=== PATIENT | male | born 1960 | race Caucasian/White ===

== ENCOUNTER → 2018-01-10 10:00 | Outpatient (CLI) | payer BC, OTHER, SELFPAY | PROVIDERS: PCP Family Medicine; Visit Provider Student in an Organized Health Care Education/Training Program | DX: Z47.89 Encounter for other orthopedic aftercare (principal); G56.02 Carpal tunnel syndrome, left upper limb ==

== ENCOUNTER 2018-01-13 08:28 | Emergency (ER) | payer BC, OTHER, SELFPAY ==
[2018-01-13 08:35] VITALS: BP 153/78; PULSE 55; RESP 16; TEMP 36.4; O2SAT 98
--- NOTE | 2018-01-13 09:53 | ED.GENADUL_ITS ---
Disposition Clinical Impression: Penile lesion, Blister Disposition: HOME Condition: Fair Additional Instructions: Keep wound clean and dry. You may apply bacitracin to help prevent this from sticking to clothing. Monitor area for signs of infection including redness, pain, discharge, fever/chills. If these arise or you develop other new/ worsening symptoms please seek care urgently once again. Refrain from sexual activity until this is completely resolved. Please follow-up with primary care this week to ensure that this is healing well. Referrals: Oscar Evans DO [Primary Care Provider] - Medical Decision Making - Medical Decision Making Patient presents today with chief complaint of penile lesion. Lesion presented itself this morning with patient had an erection. 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 The area is most consistent with a ruptured blister. Is irregularly shaped and appears very shallow like in the outermost layer of skin had been removed. Does not appear consistent with a chancre. Patient is not at risk for syphilis as he has been tested historically has been in a monogamous relationship. It is not consistent with a herpetic lesion. No surrounding lesions. No penile discharge. No change in urinary or bowel habits. I do not see evidence of bacterial infection. Patient I did discuss the signs symptoms of infection bacterial infection when to seek care urgently once again. Advised that he keep this clean and try to keep this moistened with bacitracin as I am concerned that it may stick to his underwear and cause further irritation. Advise follow-up with primary care this week for reevaluation. All of his questions and concerns were addressed and he is in agreement with this plan. History of Present Illness - General Chief complaint: RashLesion Stated complaint: RASH Time Seen by Provider: 01/13/18 09:40 Source: patient, RN notes reviewed Mode of arrival: ambulatory Limitations: no limitations - History of Present Illness Initial comments: Patient is a 57-year-old male presenting today with chief complaint of penile lesion. 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 States that it was quite irritating to him and he did have to adjust on multiple occasions. States that he did not think much of this and did not have any pain or subsequent injury. However, when he awoke this morning with an erection he then noted a lesion to the dorsal aspect of his penis. States it is nonpainful. He has not noted any discharge. Denies any discharge from the penis. No new sexual partners. Patient is in a monogamous relationship. Reports that he has been tested for STDs historically and has been found to be negative. Denies any fevers or chills. Continues to deny any pain at the site of the lesion. Denies any change in bowel or bladder habits. - Related Data Hydrochlorothiazide 12.5 mg PO DAILY 05/19/14 Losartan [Cozaar] 50 mg PO DAILY 05/19/14 Pravastatin [Pravachol] 40 mg PO .QHS 05/19/14 Cholecalciferol (Vitamin D3) [Vitamin D3] 2,000 unit PO DAILY 09/07/17 Echinacea 380 mg PO DAILY #2 09/07/17 Multivitamin [Multi-Vitamin Daily] 1 each PO DAILY 09/07/17 [place]-3/Dha/Epa/Fish Oil [Fish Oil 1,200 mg Softgel] 1 each PO DAILY 09/07/17 Tadalafil [Cialis] 20 mg PO DAILY 7 Days #7 tab-cap 09/07/17 Allergies Allergy/AdvReac Type Severity Reaction Status Date / Time poison lashawn extract Allergy Unverified 01/13/18 08:37 Review of Systems Constitutional: no symptoms reported. denies: chills, fever Respiratory: no symptoms reported Gastrointestinal: denies: abdominal pain, nausea, vomiting, diarrhea, constipation Genitourinary: as per HPI. denies: urgency, dysuria, frequency, hematuria, discharge, testicular pain, testicular mass Musculoskeletal: denies: back pain Skin: as per HPI Past Medical History - Past Medical History Medical history: hyperlipidemia, hypertension Surgical history: non-contributory - Social History Living Situation: lives with family General Exam - General Limitations: no limitations General appearance: alert, in no apparent distress - Eye Eye exam: Present: normal apperance - Respiratory Respiratory exam: Absent: respiratory distress - Rectal Rectal exam: Present: deferred - exam: Absent: normal inspection (Exam the patient's penis reveals a nontender very shallow lesion consistent with a ruptured blister. It is irregularly shaped. It does not appear to be eroded such as with a chancre. No discharge. There is pink. Appears that the superficial most layer of skin has been removed again, such as a popped blister. No surrounding erythema. No penile discharge. No penile pain on palpation.), testicular tenderness, urethral discharge, scrotal swelling - Neurological Exam Neurological exam: Present: alert, normal gait - Psychiatric Psychiatric exam: Present: normal affect, normal mood - Skin Skin exam: Absent: normal color (As above), vesicles Course Vital Signs - 24 hr 01/13/18 08:35 Temperature 36.4 C L Pulse 55 L Respiratory 16 Rate Blood Pressure 153/78 Pulse Oximetry 98
== END 2018-01-13 10:06 | disposition home or self-care (01) ==
PROVIDERS: Emergency Provider Physician Assistant; PCP Family Medicine
DX: S30.822A Blister (nonthermal) of penis, initial encounter (principal); X58.XXXA Exposure to other specified factors, initial encounter; I10 Essential (primary) hypertension
CPT/HCPCS: 99282

== ENCOUNTER → 2018-01-17 14:19 | Outpatient (CLI) | payer BC, OTHER, SELFPAY ==
[2018-01-18 11:31] LABS: Syphilis Serology (RPR) Negative (Negative)
== END ==
PROVIDERS: PCP Family Medicine; Visit Provider Family Medicine
DX: N48.9 Disorder of penis, unspecified (principal)
CPT/HCPCS: 36415; 86592

== ENCOUNTER 2020-09-23 06:34 | Outpatient (CLI) | payer BC, OTHER, SELFPAY ==
--- NOTE | 2020-09-23 09:00 | DI.RAD_ITS ---
EXAM: XR SHOULDER RT COMPLETE 2+V CLINICAL HISTORY: R shoulder pain, eval for arthritis, ac joint arthritis, M19.019. TECHNIQUE: 2D digital imaging was performed. COMPARISON: No exams were available for comparison FINDINGS: There is no evidence of fracture nor dislocation or abnormal soft tissue calcifications. Mild degene rative changes are noted in the glenohumeral joint. No obvious findings in the AC joint. No osseous lesions. Bone density normal. IMPRESSION: DATA REPOSITORY: RADIATION DOSE DELIVERED:
== END 2020-09-23 06:54 ==
PROVIDERS: PCP Family Medicine; Visit Provider Family Medicine
DX: M25.511 Pain in right shoulder (principal); M19.011 Primary osteoarthritis, right shoulder
CPT/HCPCS: 73030

== ENCOUNTER 2020-09-24 08:59 | Outpatient (CLI) | payer BC, OTHER, SELFPAY ==
--- NOTE | 2020-09-24 09:45 | DI.RAD_ITS ---
EXAM: XR SHOULDER LT COMPLETE 2+V CLINICAL HISTORY: Generalized L shoulder pain M25.512. TECHNIQUE: 2D digital imaging was performed. COMPARISON: CR XR SHOULDER RT COMPLETE 2+V from 09/23/2020 FINDINGS: BONES: No acute fracture is present. No bony destructive lesion is seen. JOINTS: No dislocation present. There is no significant AC joint spurring. There is minimal spurrin g at the tip of the acromion. There is mild spurring at rim of the glenoid. The glenohumeral joint space is well maintained. SOFT TISSUE: There is heavy calcification seen above the humeral head, consistent with supraspinatus calcific tendinosis. IMPRESSION: Mild degenerative changes and calcific tendinosis. DATA REPOSITORY: RADIATION DOSE DELIVERED:
--- NOTE | 2020-09-24 09:45 | DI.RAD_ITS ---
EXAM: XR CERVICAL SPINE COMP 4-5V CLINICAL HISTORY: Persistent neck stiffness and pain M43.6 TORTICOLLIS. TECHNIQUE: 2D digital imaging was performed. COMPARISON: CR CERVICAL SP. LIMITED (TRAUMA) from 05/19/2014 FINDINGS: Exam is limited by motion. BONES: No fracture or gross evidence of destructive lesion. Vertebral bodies plate osteophytes projec ting mainly anteriorly. Facet joint osteophytes are also seen. There is neural foraminal encroachme nt on the left at C2-3 and C3-4. There is mild neural foraminal encroachment at C6-7 on the right. DISKS: Mild disc space narrowing at C5-6 and C6-7. ALIGNMENT: Cervical spinal alignment is within normal limits. The odontoid and atlantoaxial articulat ions are normal. SOFT TISSUE: Normal. The lung apices are clear. IMPRESSION: Neural foraminal narrowing on the left at C2-3 and C3-4 secondary to facet degenerative changes. Mil d right neural foraminal narrowing at C6-7 secondary to uncovertebral osteophytes. DATA REPOSITORY: RADIATION DOSE DELIVERED:
== END 2020-09-24 09:19 ==
PROVIDERS: PCP Family Medicine; Visit Provider Family Medicine
DX: M25.512 Pain in left shoulder (principal); M19.012 Primary osteoarthritis, left shoulder; M75.32 Calcific tendinitis of left shoulder; M54.2 Cervicalgia; M43.6 Torticollis; M50.322 Other cervical disc degeneration at C5-C6 level; M50.323 Other cervical disc degeneration at C6-C7 level
CPT/HCPCS: 72050; 73030

== ENCOUNTER 2020-12-08 01:56 | Outpatient (CLI) | payer BC, OTHER, SELFPAY ==
--- NOTE | 2020-12-08 09:00 | DI.MRI_ITS ---
Exam(s) MR UPPER JOINT RT WO EXAM: MR UPPER JOINT RT WO CLINICAL HISTORY: rt rotator cuff tendinitis, shoulder pain, m75.81. TECHNIQUE: Multiplanar multisequence MRI was performed. COMPARISON: No exams were available for comparison FINDINGS: BONES: There is no fracture or contusion pattern. JOINTS: Mild degenerative changes of the acromioclavicular joint are noted. The glenohumeral joint i s normal. TENDONS: Supraspinatus: Unremarkable. Infraspinatus: There is hyperintense signal seen in the infraspinatus tendon consistent with partial tear versus tendinosis. Subscapularis: Unremarkable. [place]: Unremarkable. Biceps and [place]: There is hyperintense signal and thickening of the biceps tendon suspicious for pa rtial tear or tendinosis. MUSCLES: Unremarkable. GLENOID LABRUM: Unremarkable on this noncontrast examination. SOFT TISSUES: Unremarkable. LIGAMENTS: Unremarkable. OTHER: There is a small amount of fluid in the subacromial subdeltoid bursa. IMPRESSION: 1. Tendinosis or partial tear of the infraspinatus and biceps tendon. 2. Mild degenerative changes of the acromioclavicular joint. 3. Small amount of fluid in the subacromial subdeltoid bursa. DATA REPOSITORY:
== END 2020-12-08 02:16 ==
PROVIDERS: PCP Family Medicine; Visit Provider Student in an Organized Health Care Education/Training Program
DX: M19.011 Primary osteoarthritis, right shoulder (principal); M75.101 Unspecified rotator cuff tear or rupture of right shoulder, not specified as traumatic; M75.81 Other shoulder lesions, right shoulder; M25.411 Effusion, right shoulder
CPT/HCPCS: 73221

== ENCOUNTER 2021-02-21 02:36 | Outpatient (CLI) | payer BC, OTHER, SELFPAY ==
[2021-02-21 11:02] LABS: Source Nasal/Nares
[2021-02-21 14:17] LABS: COVID-19 PCR Negative (Negative)
== END 2021-02-21 02:37 | disposition home or self-care (01) ==
LOC: LBO 02:36
PROVIDERS: PCP Family Medicine; Visit Provider Student in an Organized Health Care Education/Training Program
DX: Z20.822 Contact with and (suspected) exposure to COVID-19 (principal); Z01.818 Encounter for other preprocedural examination
CPT/HCPCS: 87635

== ENCOUNTER 2021-02-22 07:29 | Day surgery (SDC) | payer BC, OTHER, SELFPAY ==
[2021-02-22] VITALS (9 sets, daily range): BP systolic 126–155; BP diastolic 37–70; PULSE 51–60; RESP 16–22; TEMP 36.2–36.7; O2SAT 97–99; BMI 37.7
--- NOTE | 2021-02-22 07:18 | W.PM.DSUDISC ---
Documented by User: Natalie Orellana 02/22/21 07:38 Discharge Plan Disposition Patient Disposition: HOME Condition: Good Discharge Details Reason For Visit: Right rotator cuff tendonitis; biceps tendonitis Attending Provider: Varun Acosta Primary Care Provider: Oscar Evans Home Meds and New Rx's Prescriptions: New acetaminophen 500 mg tablet 1,000 mg PO Q8H PRN Qty: 90 RF: 0 ibuprofen 600 mg tablet 600 mg PO TID PRN (Reason: pain) Qty: 60 RF: 0 oxycodone 5 mg tablet 5 mg PO Q4H PRN (Reason: severe post-operative pain) Qty: 12 RF: 0 Continued aspirin [Adult Aspirin Regimen] 81 mg tablet,delayed release (DR/EC) 81 mg PO DAILY RF: 0 potassium chloride 20 mEq packet 20 meq PO DAILY RF: 0 losartan 100 mg tablet 100 mg PO DAILY RF: 0 multivitamin [Daily Multi-Vitamin] 1 EACH tablet 1 ea PO DAILY RF: 0 omega 0-tdn-mqs-fish oil [Fish Oil] 1 EACH capsule,delayed release(DR/EC) 1 ea PO DAILY RF: 0 atorvastatin 40 mg tablet 40 mg PO DAILY RF: 0 hydrochlorothiazide 25 mg tablet 12.5 mg PO BID RF: 0 cholecalciferol (vitamin D3) [Vitamin D3] 50 mcg (2,000 unit) capsule 2,000 unit PO DAILY RF: 0 Discharge Instructions Stand Alone Forms: Dave Pitts w/BT Referrals: Varun Acosta MD [ [facility] STAFF PHYSICIAN] - Equipment/Supplies: Sling Activity:: Sling for comfort Remove Dressings/Wound Care:: Do Not Remove Shower/Bathe:: Cover Diet:: As Tolerated Discharge Orders Discharge Orders: Discharge Order (Routine); Ordered 02/22/21 Ordered By: Natalie Orellana DS: Diagnosis Discharge Diagnosis (1) Partial tear of right rotator cuff: Status: Acute (2) Tendinopathy of right biceps tendon: Status: Acute (3) Right rotator cuff tendinitis: Status: Acute Documented by User: Varun Acosta MD 02/22/21 12:36 Discharge Plan Disposition Patient Disposition: HOME Condition: Good Discharge Details Reason For Visit: Right rotator cuff tendonitis; biceps tendonitis Attending Provider: Varun Acosta Primary Care Provider: Oscar Evans Home Meds and New Rx's Prescriptions: New acetaminophen 500 mg tablet 1,000 mg PO Q8H PRN Qty: 90 RF: 0 ibuprofen 600 mg tablet 600 mg PO TID PRN (Reason: pain) Qty: 60 RF: 0 oxycodone 5 mg tablet 5 mg PO Q4H PRN (Reason: severe post-operative pain) Qty: 12 RF: 0 Continued aspirin [Adult Aspirin Regimen] 81 mg tablet,delayed release (DR/EC) 81 mg PO DAILY RF: 0 potassium chloride 20 mEq packet 20 meq PO DAILY RF: 0 losartan 100 mg tablet 100 mg PO DAILY RF: 0 multivitamin [Daily Multi-Vitamin] 1 EACH tablet 1 ea PO DAILY RF: 0 omega 4-meq-wvl-fish oil [Fish Oil] 1 EACH capsule,delayed release(DR/EC) 1 ea PO DAILY RF: 0 atorvastatin 40 mg tablet 40 mg PO DAILY RF: 0 hydrochlorothiazide 25 mg tablet 12.5 mg PO BID RF: 0 cholecalciferol (vitamin D3) [Vitamin D3] 50 mcg (2,000 unit) capsule 2,000 unit PO DAILY RF: 0 Discharge Instructions Stand Alone Forms: Dave Pitts w/BT Referrals: Varun Acosta MD [ [facility] STAFF PHYSICIAN] - Equipment/Supplies: Sling Activity:: Sling for comfort Remove Dressings/Wound Care:: Do Not Remove Shower/Bathe:: Cover Diet:: As Tolerated Discharge Orders Discharge Orders: Discharge Order (Routine); Ordered 02/22/21 Ordered By: Natalie Orellana
[2021-02-22] MEDS: Lactated Ringers 1,000 ML 80 ML IV (08:02)
--- NOTE | 2021-02-22 08:50 | W.ANESPRE ---
General Info Date of Service Date Performed: 02/22/21 Height: 5 ft 9 in Weight: 115.9 kg Body Mass Index (BMI): 37.7 Surgical Procedure: Operation Date: 02/22/21 09:40 Proposed Procedures Side Surgeon p shoulder arthroscopy with debridement, possible rotator cuff repair Right Varun Acosta MD s Shoulder Bicep Tenodesis Right Varun Acosta MD Meds Allergies and Home Medications Allergies Allergy/AdvReac Type Severity Reaction Status Date / Time poison lashawn extract Allergy Verified 02/22/21 07:32 Home Medication Medication Instructions Recorded multivitamin [Daily Multi-Vitamin] 1 ea PO DAILY 09/07/17 omega 4-xzy-fim-fish oil [Fish Oil] 1 ea PO DAILY 09/07/17 atorvastatin 40 mg tablet 40 mg PO DAILY 03/25/18 aspirin 81 mg tablet,delayed 81 mg PO DAILY 04/10/18 release cholecalciferol (vitamin D3) 50 2,000 unit PO DAILY 09/20/20 mcg (2,000 unit) capsule hydrochlorothiazide 25 mg tablet 12.5 mg PO BID tab 09/20/20 losartan 100 mg tablet 100 mg PO DAILY tab-cap 09/20/20 potassium chloride 20 mEq oral 20 meq PO DAILY 09/20/20 packet acetaminophen 1,000 mg PO Q8H PRN #90 tab 02/22/21 ibuprofen 600 mg PO TID PRN #60 tab 02/22/21 oxycodone 5 mg PO Q4H PRN #12 tab 02/22/21 Current Visit Medications: Current Medications Generic Name Dose Route Start Last Admin Trade Name Freq PRN Reason Stop Dose Admin Acetaminophen 650 mg 02/22/21 07:17 Acetaminophen 325 Mg Tab PO Q4H PRN PRN Hydrocodone Bitart/Acetaminophen 0 tab 02/22/21 07:17 Hydrocodone 5/Acetaminophen 325 Tab PO Q3H PRN PRN Pain Ephedrine Sulfate 0 mg 02/22/21 08:29 Ephedrine 50 Mg/Ml Vial IVP DIRECTED PRN Fentanyl 0 mcg 02/22/21 08:29 Fentanyl 100 Mcg/2 Ml Vial IVP DIRECTED PRN Hydromorphone HCl 0 mg 02/22/21 08:29 Hydromorphone 2 Mg/Ml Vial IVP DIRECTED PRN Ringer's Solution 1,000 mls @ 80 mls/hr 02/22/21 06:00 02/22/21 08:02 IV 03/23/21 23:59 80 mls/hr INFUSION DARNELL Administration Cefazolin Sodium 3,000 mg/ 100 mls @ 200 mls/hr 02/22/21 06:00 Sodium Chloride IVPB 02/22/21 16:00 PREOP DARNELL Promethazine HCl 6.25 mg/ 50.25 mls @ 200 mls/hr 02/22/21 08:29 Sodium Chloride IVPB DIRECTED PRN Nausea IV Miscellaneous Supplies 1 each 02/22/21 06:00 Iv Access IV 03/23/21 23:59 DIRECTED DARNELL Naloxone HCl 0 mg 02/22/21 08:29 Naloxone 0.4 Mg/Ml Vial IVP PRN PRN Sodium Chloride 0 ml 02/22/21 06:00 Normal Saline Flush 10 Ml Syr IV 03/23/21 23:59 PRN PRN Sodium Chloride 0 ml 02/22/21 06:00 Normal Saline 10 Ml Vial IJ 03/23/21 23:59 DIRECTED PRN Sterile Water 0 ml 02/22/21 06:00 Water,Injection,Sterile 10 Ml Vial IJ 03/23/21 23:59 DIRECTED PRN PFSH Active Problems Active Problems: Problem Status Onset Code Partial tear of right rotator cuff M75.111 Tendinopathy of right biceps tendon M67.921 Right rotator cuff tendinitis M75.81 Left carpal tunnel syndrome G56.02 History of carpal tunnel surgery of right wrist Z98.890 History of carpal tunnel surgery of left wrist Z98.890 Hematospermia 08/29/17 R36.1 Thoracic spine pain 08/29/17 M54.6 Sleep apnea 08/29/17 G47.30 Pain in joint involving ankle and foot 08/29/17 M25.579 Hyperlipidemia 08/29/17 E78.5 Essential hypertension 08/29/17 I10 Bilateral carpal tunnel syndrome G56.03 Medical History Medical History BiPAP (biphasic positive airway pressure) dependence Surgical History Surgical History foot surgery (09/07/94) Repair of inguinal hernia Tonsillectomy and adenoidectomy Tobacco Smoking/Tobacco Use Status: Former Tobacco Use Alcohol Alcohol Intake: current Alcohol intake frequency: holidays/special occasions only Alcohol type: beer Substance Use Substance use: Never Substance use type: does not use Vital Signs and Lab Results Vital Signs Most Recent Vital Signs in EMR: Most Recent Vital Signs Temp Pulse Resp BP Pulse Ox 36.6 C 54 L 16 142/70 H 99 02/22/21 07:30 02/22/21 07:30 02/22/21 07:30 02/22/21 07:30 02/22/21 07:30 Lab Results Blood Type / Crossmatch: No Data to Display Complete Blood Count: No Data to Display Complete Metabolic Panel: No Data to Display Liver Function Panel: No Data to Display Coagulation Panel: No Data to Display Cardiac Panel: No Data to Display Arterial Blood Gas: No Data to Display Venous Blood Gas: No Data to Display Pancreas Panel: No Data to Display Thyroid Panel: No Data to Display Infectious Disease: Coronavirus (COVID-19)(PCR) Negative (Negative) 02/21/21 08:28 02/21/21 Coronavirus 2019 Source Nasal/Nares 02/21/21 08:28 02/21/21 Blood Cultures: No Data to Display Toxicology Panel: No Data to Display Anesthesia Assessment and Plan Anesthesia History Personal History: No History of Anesthesia Complications Family History: No Family History of Anesthesia Complications Exercise Tolerance Exercise Tolerance: Metabolic Equivalents>4 Pertinent Negatives Pertinent Negatives: No Symptoms of GERD, No Major Cardiovascular Symptoms or Complaints, No Major Pulmonary Symptoms or Complaints and No History of CVA/TIA Cardiac & Pulmonary Exam Cardiac Exam: Normal S1/S2 Heart Sounds Pulmonary Exam: Clear Bilateral Breath Sounds Airway Exam Known Difficult Airway: No Mallampati Class: 2 Mouth Opening: Normal (> 3cm) Thyromental Distance: Greater than 3 cm Neck Range of Motion: Full ROM Neck Circumference: Thick Teeth Condition: Loose or Chipped ASA Classification ASA Score: ASA 2 Emergency Case?: No NPO Status NPO Status: NPO Clears >2 hours, Solids >8 hours Anesthesia Plan Resuscitation Status: Full Code Anesthesia Technique: General Anesthesia Airway Planned: Endotracheal Tube Monitors Used: Standard Monitors
--- NOTE | 2021-02-22 09:22 | RESPIRATORY ---
Res Med Arc Curve 10 with nasal mask. Settings of 18/12. Everything is clean and in good condition.
[2021-02-22] MEDS: ceFAZolin 3,000 MG in Normal Saline 100 ML 200 MG IVPB (09:32)
--- NOTE | 2021-02-22 09:48 | ANES.NERVE_ITS ---
Nerve Block Single Injection Procedure Date and Time Date Performed: 02/22/21 Procedure Start: 09:04 Location Where Procedure Performed Procedure Location: PACU Reason Performed: Postoperative Analgesia Requesting Provider: Varun Acosta Timeout Performed Timeout Performed: No Monitoring Used ECG, Blood Pressure and SpO2 Sterility Sterility: Hand Hygiene, Surgical Cap, Surgical Mask and Sterile Gloves Sedation Given During Procedure Sedation Given (Indicate Dose Given): No Sedation given and Versed IV Dose:: 2 mg Patient Mental Status Patient Mental Status: Awake Nerve Block 1st Nerve Block: Laterality: Right Block Type: Supraclavicular Needle / Catheter Used: 100mm SonoPlex II Local Anesthetic Bolus (Indicate Dose Given): Lidocaine used for local inf iltration of skin, Injected in 3-5ml increments after negative blood aspiration, Bupivacaine 0.5% Dose:: 10 ml and Exparel Dose:: 10 ml Additives (Indicate Dose Given): None Ultrasound: Sterile probe cover and gel used Ultrasound Image Saved?: Yes Nerve Stimulator: Not Used Paresthesia: None Procedure Tolerated: No Complications and Patient tolerated well Procedure Outcome: Successful Performed By: Ramin Paris Supervised By: Silke Mckinney
[2021-02-22] MEDS: EPINEPHrine 30 MG/30 ML VIAL (10:15)
[2021-02-22] MEDS: Bupivacaine 0.25% Pres-Free 30 ML VIAL (10:56)
--- NOTE | 2021-02-22 11:00 | W.PM.OP ---
Date of service: 02/22/21 Time of Service: 11:01 Operative Note Operative Note DATE OF PROCEDURE: 02/22/21 PRE-OP DIAGNOSIS: Right Rotator Cuff Tear, Right Shoulder Impingement, Right Biceps Tendinitis POST-OP DIAGNOSIS: other (Right Partial Rotator Cuff Tear, Right Shoulder Impingement, Right SLAP Tear) PROCEDURE: - Extensive debridement of anterior and posterior glenohumeral joint and rotator cuff - Sub-pectoral biceps tenodesis - Subacromial Debridement with Acromioplasty SURGEON: Varun Acosta SQUARE CUTTER: Natalie Orellana ANESTHESIA TYPE: General LMA/ETT Refer to Anesthesia Record ESTIMATED BLOOD LOSS: 10 PATHOLOGY: none sent TOURNIQUET TIME: 0 COMPLICATIONS: None Patient was transported to: PACU Patient's condition: stable Indications: I have seen Trevor Garcia) in clinic for a painful shoulder. Pathology was confirmed based on MRI and exam findings. Nonoperative measures were exhausted but disability and pain persisted. I discussed shoulder arthroscopy and procedures. I reviewed the risks of the procedures to include, but not limited to, bleeding, infection, pain, stiffness, damage to nerves or vessels, recurrence, hardware failure, blood clot. Despite these risks, the patient elected to proceed. 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 - Labrum: Fraying throughout from 10-3 o'clock with tearing of the superior labrum from the superior glenoid with involvement of the anchor - Cuff: Fraying and partial tearing of the subscapularis and supraspinatus, gross inflammation within the shoulder - Biceps: Mild inflammatory changes focused at the anchor with a torn anchor insertion Subacromial Side - Bursal: Dense, thick inflammation throughout - Rotator Cuff: Fraying and partial tearing of the bursal surface of the supraspinatus and to a lesser extent the infraspinatus - Mild anterior spur of the acromion Procedure Description: Carmine was greeted in the preoperative holding area where the correct side was identified and marked. The consent was reviewed with the patient and signed. The history and physical was updated. All questions were answered. Stacey was taken back to the PACU for administration of an intrascalene nerve block. He was then taken to the operating room. The patient was placed into the supine position on the operating room table. A general anesthetic was administered. Stacey was then positioned in the beach chair position. All bony prominences were well padded. The head was placed in a foam head of commission department in a neutral position. Prophylactic antibiotics in the form of Cefazolin were administered. The right arm/shoulder was then prepped with Chloraprep and draped in a standard fashion with stockinette and shoulder drape. A timeout to confirm correct identity, side and site, procedure, allergies, anesthesia, and medical concerns was performed. The arm was placed into a pneumatic selby, [id number]. The shoulder arthroscopy was then performed. The glenohumeral joint was injected with 20 cc of normal saline with good flow back. A standard posterior portal was made and the joint was entered atraumatically with a blunt arthroscope. Once inside we had good visualization of the structures of the glenohumeral joint. An anterior portal was established with spinal needle localization. A 6.5 mm cannula was inserted. A probe was then used to perform a diagnostic arthroscopy. There is noted to be some Grade III chondromalacia cartilage damage of the superior humeral head. The labrum was significantly frayed from 10:00 to 3:00 with detachment of the superior from the superior glenoid associated with the biceps anchor. There was a large and wide MGHL. There were no loose bodies in the inferior pouch. The superior rotator cuff was attached to the tuberosity but there was notable fraying over the articular margin. The biceps tendon had mild inflammatory changes but no specific tearing of the tendon except at its anchor insertion. The subscapularis was intact but there were some frayed tendon fibers at the insertion. Using electrocautery I first performed a biceps tenotomy for later tenodesis given the SLAP tear I then used a shaver to debride down the labrum from 10:00 to 3:00. This smoothed out any frayed edges. Attention was then turned to the rotator interval which was notably dense. The interval was opened up better visualization of the subscap. The subscapularis was fully identified and showed some fraying at its insertion to the lesser tuberosity but no liftoff. This was tested both in internal rotation and external rotation. I therefore debrided these fibers down to healthy tendon fibers. The superior rotator cuff, supraspinatus, had articular sided tearing. This was debrided with the shaver and exposed about 5 mm of footprint. There is no full-thickness tear component identified. I placed a PDS sutures through this area for later identification from the bursal side. The biceps tenodesis was then performed. With the arm and some slight external rotation abduction pectoralis major tendon was identified. A 2 cm incision was made overlying the insertion to the humerus. Sharp dissection was carried onto the skin. Blunt dissection was carried down to the fascia the biceps musculature. This was entered with a tenotomy scissors. The biceps groove was palpable and the biceps tendon was palpable. It was withdrawn from the wound using Allis clamp and finger dissection. Once the biceps tendon was out of the arm the biceps groove was prepared using a rasp. A Mitek Lupine anchor was inserted into the biceps groove at the level of the pectoralis major insertion. This was tested to make sure had excellent fixation into the bone. Using a free needle I then placed a locking Krak?w stitch and each side of the biceps tendon using one limb from each suture at the level of the musculatendinous junction and moving proximally. Excess tendon was then cut. Using the free suture limb I then shuttled the tendon down to the prepared surface of the humerus. It laid flat against the humerus. It was at the level of the pectoralis major tendon. The suture limbs were then tied. The wound was irrigated. The subcutaneous tissue was reapproximated with a 2-0 Vicryl. The arthroscope was then inserted into the subacromial space. The 6.5 mm cannula was placed lateral to the CA ligament. A complete bursectomy is performed anteriorly, posteriorly, and laterally with electrocautery and shaver. This had excellent exposure of the rotator cuff. The bursal side rotator cuff was without any significant tearing that was appreciated. There was a small anterolateral spur. There was notable fraying on the bursal surface and a dense rotator cuff bursa. However, ther eiwas no bursal tear more than a few mms. Using a spinal needle a lateral portal was established. This became the viewing portal. A 5.0 mm kota was then inserted from the posterior portal. The anterolateral corner of the acromion was then resected in plane with the posterior slope of the acromion. The scope equipment was removed from the shoulder. Excess fluid was evacuated. The portal sites were closed with 3-0 Monocryl. The wounds were dressed with Steri-Strips, 4 x 4's, ABDs, Medipore tape. A sling was applied. The patient tolerated the procedure well and was returned to the PACU in a stable condition suffering no known complication.
[2021-02-22] MEDS: fentaNYL 100 MCG/2 ML VIAL IVP ×2 (11:44→11:59)
--- NOTE | 2021-02-22 12:11 | W.ANESPOSTOP ---
Postoperative Evaluation Date, Time and Location Date Performed: 02/22/21 Time Performed: 12:11 Patient Location: PACU Vital Signs Most Recent Imported Vital Signs: Most Recent Vital Signs Temp Pulse Resp BP Pulse Ox 36.3 C L 59 L 18 155/65 H 98 02/22/21 12:05 02/22/21 12:05 02/22/21 12:05 02/22/21 12:05 02/22/21 12:05 Pain Score Most Recent Pain Score: Most Recent Pain Score Pain Level 4 02/22/21 12:05 Assessment Mental Status: Awake (Alert & Oriented to Patient Baseline) Airway and Respiratory Function: Patent airway with normal (patient baseline) respiratory exam Cardiovascular Function: Hemodynamically Stable Hydration Status: Adequately Hydrated Nausea & Vomiting: No Nausea or Vomiting Pain: Pain is tolerable per patient Peripheral Nerve Block: Regional nerve block not resolved at time of post operative discharge Teaching Patient Teaching: Discussed Safe Use of Pain Medication Given Likely or Known ARMANDO
== END 2021-02-22 13:35 | disposition home or self-care (01) ==
LOC: SUR 07:29
PROVIDERS: PCP Family Medicine; Visit Provider Student in an Organized Health Care Education/Training Program
PROC: (CPT 29827; principal; 2021-02-22 09:30)
PROC: (CPT 23430; 2021-02-22 09:30)
DX: M75.111 Incomplete rotator cuff tear or rupture of right shoulder, not specified as traumatic (principal); M67.921 Unspecified disorder of synovium and tendon, right upper arm; M75.81 Other shoulder lesions, right shoulder
CPT/HCPCS: 29828; 29823; 29826; J0690; J1100; J1885; J2001; J2250; J2370; J2405; J2704; J3010

== ENCOUNTER 2021-06-27 15:01 | Outpatient (CLI) | payer BC, OTHER, SELFPAY ==
--- NOTE | 2021-06-27 14:45 | DI.RAD_ITS ---
Exam(s) XR KNEE RT 3V AP,LAT,CARLOS EXAM: XR KNEE RT 3V AP,LAT,CARLOS CLINICAL HISTORY: R knee pain. TECHNIQUE: 2D digital imaging was performed. COMPARISON: No exams were available for comparison FINDINGS: There is no evidence of fracture but there is a joint effusion signifying internal derangement. No j oint space narrowing. Bone density normal. No osseous lesions. IMPRESSION: No significant osseous findings but there is a joint effusion signifying internal derangement. If cl inically indicated further study with MRI can be performed DATA REPOSITORY: RADIATION DOSE DELIVERED:
== END 2021-06-27 15:02 | disposition home or self-care (01) ==
LOC: DIORS 15:01
PROVIDERS: PCP Family Medicine; Referring Provider Family Medicine; Visit Provider Physician Assistant
DX: M25.561 Pain in right knee (principal)
CPT/HCPCS: 73562

== ENCOUNTER 2021-07-08 00:59 | Outpatient (CLI) | payer BC, OTHER, SELFPAY ==
--- NOTE | 2021-07-08 08:00 | DI.MRI_ITS ---
Exam(s) MR LOWER JOINT RT WO EXAM: MR LOWER JOINT RT WO CLINICAL HISTORY: PAIN, INTERNAL DERANGEMENT,M23.91. TECHNIQUE: Multiplanar multisequence MRI was performed. COMPARISON: CR XR KNEE RT 3V AP,LAT,CARLOS from 06/27/2021 FINDINGS: BONES: No fractures identified. There is a contusion involving the medial aspect of the medial proxi mal tibia. JOINTS: Articular cartilage is unremarkable. There is a small amount of fluid in the joint space. TENDONS: Extensor mechanism: Unremarkable. Medial retinaculum: Unremarkable. Lateral retinaculum: Unremarkable. Popliteus: Unremarkable. MUSCLES: Unremarkable. MENISCI: There is horizontal intermediate signal seen paralleling the articular surface in the welder machine operator ior horn of the medial meniscus suggestive of degeneration. No definite tear is seen. The lateral m eniscus is unremarkable. SOFT TISSUES: There is edema seen in the soft tissues of the anterior medial knee. No focal fluid co llection is identified. LIGAMENTS: Anterior Cruciate: Unremarkable. Posterior Cruciate: Unremarkable. Medial Collateral:There is a mild amount of edema around the medial collateral ligament which may rep resent a sprain. Lateral Collateral: Unremarkable. OTHER: IMPRESSION: 1. MCL sprain. 2. Contusion involving the medial aspect of the proximal tibia. 3. Edema in the medial soft tissues of the knee. 4. Findings suggestive of degeneration of the posterior horn of the medial meniscus. DATA REPOSITORY:
== END 2021-07-08 01:19 ==
PROVIDERS: PCP Family Medicine; Visit Provider Student in an Organized Health Care Education/Training Program
DX: M25.561 Pain in right knee (principal); M23.8X1 Other internal derangements of right knee; M25.461 Effusion, right knee; M79.89 Other specified soft tissue disorders; S83.411A Sprain of medial collateral ligament of right knee, initial encounter; X58.XXXA Exposure to other specified factors, initial encounter
CPT/HCPCS: 73721

== ENCOUNTER 2022-08-09 09:54 | Outpatient (CLI) | payer BC, OTHER, SELFPAY ==
--- NOTE | 2022-08-09 08:45 | DI.RAD_ITS ---
Exam(s) XR SHOULDER LT COMPLETE 2+V EXAM: XR SHOULDER LT COMPLETE 2+V CLINICAL HISTORY: left shoulder pain. TECHNIQUE: 2D digital imaging was performed. Three views. COMPARISON: CR XR SHOULDER LT COMPLETE 2+V from 09/24/2020 MR MR UPPER JOINT RT WO from 12/08/2020 FINDINGS: BONES: No acute fracture is present. No bony destructive lesion is seen. JOINTS: No dislocation present. Mild degenerative changes of the AC joint and glenohumeral joint. SOFT TISSUE: Faint densities above the greater tuberosity with marked improvement compared with prior . IMPRESSION: Mild degenerative changes. Improvement in calcific tendon densities DATA REPOSITORY: RADIATION DOSE DELIVERED:
== END 2022-08-09 09:55 | disposition home or self-care (01) ==
LOC: DIORS 09:55
PROVIDERS: PCP Family Medicine; Referring Provider Family Medicine; Visit Provider Student in an Organized Health Care Education/Training Program
DX: M19.012 Primary osteoarthritis, left shoulder (principal); M85.812 Other specified disorders of bone density and structure, left shoulder
CPT/HCPCS: 73030

== ENCOUNTER 2022-11-26 15:48 | Emergency (ER) | payer BC, OTHER, SELFPAY ==
[2022-11-26 15:52] VITALS: BP 143/76; PULSE 65; RESP 20; TEMP 36.8; O2SAT 98
--- NOTE | 2022-11-26 16:00 | DI.RAD_ITS ---
Exam(s) XR FOREARM RT XR HAND RT COMPLETE EXAM: XR HAND RT COMPLETE and XR forearm RT CLINICAL HISTORY: Swelling. TECHNIQUE: 2D digital imaging was performed of the right forearm and hand. Five images were obtaine d. AP, lateral and oblique views were obtained. COMPARISON: Comparison 12/25/2016. FINDINGS: BONES: No acute fracture is present. No bony destructive lesion is seen. JOINTS: No dislocation present. Mild degenerative changes are present. SOFT TISSUE: There is generalized soft tissue swelling of the hand and wrist. IMPRESSION: 1. No acute fracture, dislocation or destructive lesion is seen. 2. Mild degenerative changes of the hand. 3. Generalized soft tissue swelling of the hand, wrist and forearm. DATA REPOSITORY: RADIATION DOSE DELIVERED:
--- NOTE | 2022-11-26 16:14 | W.ED.GENAD ---
Discharge Plan Disposition Patient Disposition: Home Condition: Stable Discharge Details Clinical Impression: Cellulitis of arm, right Primary Care Provider: Oscar Evans ED Provider: Karen Hummel Home Meds and New Rx's Prescriptions: New cephalexin 500 mg tablet 500 mg PO BID 7 Days Qty: 14 0RF Continued aspirin [Adult Aspirin Regimen] 81 mg tablet,delayed release (DR/EC) 81 mg PO DAILY losartan 100 mg tablet 100 mg PO DAILY finasteride 5 mg tablet 5 mg PO DAILY torsemide 20 mg tablet 20 mg PO DAILY amlodipine 5 mg tablet 5 mg PO BID probiotic PO DAILY Advil Dual Action 125-250 mg tablet 1 tab PO Q8H PRN multivitamin [Daily Multi-Vitamin] 1 EACH tablet 1 ea PO DAILY omega 5-pav-ywo-fish oil [Fish Oil] 1 EACH capsule,delayed release(DR/EC) 1 ea PO DAILY atorvastatin 40 mg tablet 40 mg PO DAILY Patient Comments: via [employer] [employer] acetaminophen 500 mg tablet 1,000 mg PO Q8H PRN Qty: 90 0RF Rx Instructions: Take two tablets up to every 8 hours as needed for pain Discharge Instructions Instructions: Cellulitis (ED) Additional Instructions: Please take the antibiotic with yogurt for the next 7 days twice daily. Continue to ice your arm keep it elevated when sitting or lying down. May also continue to take Benadryl or Zyrtec every 6-8 hours as needed for swelling and itching. Please return to the ER if swelling spreads past your elbow. Return for any fever chills or feeling sicker at any time. Follow up with primary care provider in 3-5 days. Return to ED sooner if any worsening or concerns. Increase oral fluids. Please take Tylenol or Ibuprofen with food every 4-6 hours as needed for pain and swelling. Stand Alone Forms: Work Release Referrals: Oscar Evans DO [Primary Care Provider] - 3 days Medical Decision Making 62-year-old male presents to the ER with chief complaint of right hand and forearm swelling which began around 930 this morning. Patient reports that he was out working in the yard wearing gloves when he noticed a horse fly other flying insect. He is unsure what could possibly bit him. He presents with swelling to his hand and forearm which has gotten worse. He also reports some slight numbness in his lips. No wheezing no trouble breathing. He does have some difficulty making a fist and decreased flexion at wrist. Denies any recent injuries. Did not take any medications prior to arrival. Does have a history of hyperlipidemia hypertension sleep apnea. He does take aspirin daily. No other associated symptoms or complaints. Work-up CBC, CMP blood cultures x2, lactate, x-ray Benadryl Pepcid and Solu-Medrol. Differential diagnosis includes not limited to underlying injury, cellulitis, insect bite, allergic reaction. BC shows elevated white blood cell count 16.5, neutrophils 13.3, monocytes are also elevated. Lactate slightly elevated at 1.6 testing slightly low at 4 glucose 1 5 alk phos is 121. Patient was given a gram of Rocephin, blood cultures are pending at this time. X-rays show no acute bony abnormality no foreign body, positive soft tissue swelling. Findings are consistent with cellulitis. Grandma ceftriaxone IV was ordered. Patient was given cephalexin 500 mg twice daily for the next 7 days. Discussed home care and strict return instructions to return if the swelling extending up past his elbow. They verbalized understanding. This text was generated using [employer] system, please disregard any oddities of phrase or misspellings. Imaging Data Radiologic Study: Imaging: X-Ray Radiologist's impression: TECHNIQUE: Imaging protocol: Radiologic exam of the right forearm. Views: 2 views. COMPARISON: MR UPPER JOINT RT WO 12/08/2020 14:39 FINDINGS: Bones/joints: No evidence for acute bony injury. Soft tissues: Soft tissue swelling of the forearm, wrist, and hand. IMPRESSION: 1. No evidence for acute bony injury. If clinical symptoms persist recommend followup film in 7-10 days. 2. Soft tissue edema of the arm, wrist, and hand. Consider ultrasound for further evaluation of possible deep venous thrombosis. Thank you for allowing us to participate in the care of your patient. Dictated and Authenticated by: Sharlene Guerra MD Lab Data Lab results reviewed: Yes I reviewed the patient's lab results. Labs: 11/26/22 17:00 Blood Blood Culture - Pending 11/26/22 16:42 Blood Blood Culture - Pending Laboratory Tests Range/Units 11/26/22 11/26/22 11/26/22 16:42 16:42 16:42 WBC (4.4-10.8) 10^3/uL 16.85 H RBC (4.36-5.78) 10^6/uL 4.17 L Hgb (13.5-17.5) g/dL 12.7 L Hct (40.0-50.0) % 36.4 L MCV (80-95) fL 87 MCH (27.0-33.0) pg 30.5 MCHC (32.0-36.0) % 34.9 RDW (11.8-14.1) % 12.0 Plt Count (130-400) 10^3/uL 376 MPV (8.0-11.0) fL 8.6 Immature Gran % 0.4 Neutrophils % 81.5 Lymphocytes % 10.6 Monocytes % 6.7 Eosinophils % 0.5 Basophils % 0.3 Nucleated RBC % (0.0-0.3) % 0.0 Absolute Neutrophils (1.2-6.7) 10^3/uL 13.73 H Absolute Lymphocytes (1.2-3.4) 10^3/uL 1.79 Absolute Monocytes (0.1-0.8) 10^3/uL 1.13 H Absolute Eosinophils (0.0-0.7) 10^3/uL 0.08 Absolute Basophils (0.0-0.2) 10^3/uL 0.05 VBG Lactate (0.6-1.4) mmol/L 1.6 H Sodium (136-145) mmol/L 142 Potassium (3.5-5.1) mmol/L 3.4 L Chloride (98-107) mmol/L 104 Carbon Dioxide (21.0-32.0) mmol/L 27.2 Anion Gap (3-11) mmol/L 10.8 BUN (7-18) mg/dL 14 Creatinine (0.70-1.30) mg/dL 0.9 Est GFR (CKD-EPI 2020) (mL/min/1.73m2) 97.78 Glucose (74-106) mg/dL 155 H Calcium (8.5-10.1) mg/dL 8.7 Magnesium (1.8-2.4) mg/dL 2.0 Total Bilirubin (0.2-1.0) mg/dL 0.3 AST (15-37) U/L 21 ALT (16-63) U/L 29 Alkaline Phosphatase (46-116) U/L 121 H Total Protein (6.4-8.2) g/dL 7.4 Albumin (3.4-5.0) g/dL 3.8 HPI General Mode of arrival: ambulatory. Date/Time Provider Initiated Documentation: 11/26/22 15:56. Limitations to Documentation: no limitations. Information obtained by: patient, RN notes reviewed and old records reviewed. HPI Narrative: 62-year-old male presents to the ER with chief complaint of right hand and forearm swelling which began around 930 this morning. Patient reports that he was out working in the yard wearing gloves when he noticed a horse fly other flying insect. He is unsure what could possibly bit him. He presents with swelling to his hand and forearm which has gotten worse. He also reports some slight numbness in his lips. No wheezing no trouble breathing. He does have some difficulty making a fist and decreased flexion at wrist. Denies any recent injuries. Did not take any medications prior to arrival. Does have a history of hyperlipidemia hypertension sleep apnea. He does take aspirin daily. No other associated symptoms or complaints. Related Data Home Medications Medication Instructions Recorded Confirmed multivitamin (Daily Multi-Vitamin 1 ea PO DAILY 09/07/17 11/10/22 tablet) omega-3 360 ww-lfu-vtu-fish oil 1 ea PO DAILY 09/07/17 11/10/22 1,200 mg capsule,delayed release (Fish Oil) atorvastatin 40 mg tablet 40 mg PO DAILY 03/25/18 11/10/22 aspirin 81 mg tablet,delayed 81 mg PO DAILY 04/10/18 11/10/22 release (Adult Aspirin Regimen) losartan 100 mg tablet 100 mg PO DAILY 09/20/20 11/10/22 acetaminophen 500 mg tablet 1,000 mg PO Q8H PRN pain #90 tabs 02/22/21 11/10/22 amlodipine 5 mg tablet 5 mg PO BID 12/20/21 11/10/22 finasteride 5 mg tablet 5 mg PO DAILY 12/20/21 11/10/22 probiotic PO DAILY 12/20/21 11/10/22 torsemide 20 mg tablet 20 mg PO DAILY 12/20/21 11/10/22 ibuprofen 125 mg-acetaminophen 250 1 tab PO Q8H PRN 08/09/22 11/10/22 mg tablet (Advil Dual Action) cephalexin 500 mg tablet 500 mg PO BID 7 days #14 tabs 11/26/22 Previous Rx's Medication Instructions Recorded acetaminophen 500 mg tablet 1,000 mg PO Q8H PRN pain #90 tabs 02/22/21 cephalexin 500 mg tablet 500 mg PO BID 7 days #14 tabs 11/26/22 Allergies Allergy/AdvReac Type Severity Reaction Status Date / Time poison lashawn extract Allergy Verified 11/26/22 15:57 General Stated Complaint: Cellulitis DOE: 3 Review of Systems All systems reviewed & are unremarkable except as noted in HPI and below Musculoskeletal Musculoskeletal: Reports joint swelling and Reports limited range of motion Integumentary/Breasts Skin/Breast: Reports as per HPI and Reports skin swelling PFSH All Active Problems (Updated 11/26/22 @ 18:51 by Karen Hummel NP) Cellulitis of arm, right (Acute) Tailor's bunion of right foot (Acute) Calcific tendinitis of left shoulder (Acute) Left shoulder pain (Acute) Positive colorectal cancer screening using DNA-based stool test (Acute) Clinical trial, 07/27, colonoscopy scheduled SARS-CoV-2 positive (Acute ~02/2022) Lipoma (Acute) Internal derangement of right knee (Acute) Left carpal tunnel syndrome (Acute) History of carpal tunnel surgery of right wrist (Acute) DOS: 11/01/17 Dr. Acosta History of carpal tunnel surgery of left wrist (Acute) DOS: 01/03/18 Dr. Acosta Hematospermia (Acute 08/29/17) Thoracic spine pain (Acute 08/29/17) Sleep apnea (Acute 08/29/17) Pain in joint involving ankle and foot (Acute 08/29/17) Hyperlipidemia (Acute 08/29/17) Essential hypertension (Acute 08/29/17) Bilateral carpal tunnel syndrome (Acute) B/L Medical History BiPAP (biphasic positive airway pressure) dependence Surgical History foot surgery (09/07/94) Repair of inguinal hernia Status post arthroscopy of right shoulder Right rotator cuff debridement, biceps tenodesis, subacromial decompression and acromioplasty DOS: 02/22/2021 Tonsillectomy and adenoidectomy Family History Father Hx of CABG Arteriosclerotic heart disease (ASHD) Mother Alcohol abuse Sister Brain malignancy Social History Smoking/Tobacco Use Status: Never Smoking risk assessment performed?: Yes Alcohol Intake: current Alcohol Intake frequency: holidays/special occasions only Alcohol type: beer Drug use: Never Substance use type: does not use Adopted: No Caregiver/Support person: No Foster care: No Household members: spouse Housing: house Number of Children: 0 number of grandchildren: 0 Communication Needs: None Education Level: high school Do you need help understanding health information?: Never current occupation: retail delivery driver Pets and animals: No Sexually active: No Do you think of yourself as: straight/heterosexual Current gender identity: male What is your relationship status?: How often do you talk on the phone with friends or family?: three or more times per week How often do you get together with friends or relatives?: once per week Do you belong to any clubs or organized social groups?: yes Panel score (0-1 are the most socially isolated patients): 3 What type of physical activity do you participate in: decline to answer Annia/Cheondoism: None Special annia needs: No Seatbelt use: always Helmet use: Yes Drive intox or ride w/intox route salesman and driver: No Do you feel safe at home: Yes Do you feel safe in your relationship?: Yes Exam Narrative Exam Narrative: Constitutional: Alert and oriented x3. Appears stated age. Normal body habitus. Head: Normocephalic, no trauma. Eyes: Pupils PERRL, Red reflex noted, EOM's intact. Eyelids symmetrical without lesions, discharge, or swelling. ENT: Bilateral TM's WNL, External ear normal to inspection, no mastoid TTP, swelling, or erythema, Nasal turbinates WNL, no nasal discharge. Normal dentition, Posterior pharynx WNL, no exudate. Chest: RRR, Normal S1, S2, distal pulses intact. Resp: Lungs clear to auscultation bilaterally, no wheezes, rales, or rhonchi. Abdomen: Soft, non-distended, Normoactive bowel sounds all 4 quads. Musculoskeletal: Normal gait, 5/5 strength to all four extremities. See exam below. Skin: Swelling noted to right forearm. Capillary refill less than 2 sec. Neurologic: Cranial nerves II-XII intact. Alert and oriented x 3. Motor: No deficits noted. Sensory: Intact bilaterally all 4 extremities. Reflexes: DTR's intact bilaterally.. Hematologic/Lymphatic: No ecchymosis, no lymphadenopathy. Extrem Right upper extremity: elbow/forearm Details: abnormal to inspection and swelling, wrist Details: abnormal to inspection and swelling and hand Details: abnormal to inspection and swelling Elbow/forearm/wrist images: 1. Swelling Course Vital Signs Vital signs: Vital Signs Temperature 36.8 C 11/26/22 15:52 Pulse 65 11/26/22 15:52 Respiratory Rate 20 11/26/22 15:52 Blood Pressure 143/76 H 11/26/22 15:52 Pulse Oximetry 98 11/26/22 15:52 Temperature 36.8 C 11/26/22 15:52 Temperature Source Oral 11/26/22 15:52 Pulse 65 11/26/22 15:52 Respiratory Rate 20 11/26/22 15:52 Respiratory Effort Normal 11/26/22 15:57 Blood Pressure 143/76 H 11/26/22 15:52 Blood Pressure Position Sitting 11/26/22 15:52 Pulse Oximetry 98 11/26/22 15:52 Oxygen Delivery Method Room Air 11/26/22 15:52 Oxygen Flow Rate 0 11/26/22 15:52 Pain Level 0 11/26/22 15:52 Lab/Test Results Lab/Test Results: 11/26/22 16:12 Blood Blood Culture - Pending 11/26/22 16:12 Blood Blood Culture - Pending
[2022-11-26 16:52] LABS: Lactate 1.6 mmol/L (0.6-1.4)
[2022-11-26 16:55] LABS: Abs Immature Grans 0.06 10^3/uL (0.0-0.06); Absolute Basophil Count 0.05 10^3/uL (0.0-0.2); Absolute Lymphocyte Count 1.79 10^3/uL (1.2-3.4); Absolute Monocyte Count 1.13 10^3/uL (0.1-0.8); Absolute Neutrophil Count 13.73 10^3/uL (1.2-6.7); Basophils % 0.3; Eosinophils % 0.5; HCT 36.4 % (40.0-50.0); HGB 12.7 g/dL (13.5-17.5); Immature Grans % 0.4; Lymphocytes % 10.6; MCH 30.5 pg (27.0-33.0); MCHC 34.9 % (32.0-36.0); MCV 87 fL (80-95); MPV 8.6 fL (8.0-11.0); Monocytes % 6.7; Neutrophils % 81.5; Platelet Count 376 10^3/uL (130-400); RBC 4.17 10^6/uL (4.36-5.78); RDW-SD 38.5 fL; WBC 16.85 10^3/uL (4.4-10.8)
[2022-11-26 16:57] LABS: Absolute Eosinophil Count 0.08 10^3/uL (0.0-0.7)
[2022-11-26] MEDS: Famotidine 20 MG/2 ML VIAL IVP (17:00)
[2022-11-26] MEDS: diphenhydrAMINE 50 MG/ML VIAL 25 MG IVP (17:01)
[2022-11-26] MEDS: Water,Injection,Sterile 10 ML VIAL (17:02)
[2022-11-26] MEDS: methylPREDNISolone SUCC 125 MG VIAL IVP (17:02)
[2022-11-26 17:12] LABS: ALT 29 U/L (16-63); AST 21 U/L (15-37); Albumin 3.8 g/dL (3.4-5.0); Alkaline Phosphatase 121 U/L (46-116); Anion Gap 10.8 mmol/L (3-11); BUN 14 mg/dL (7-18); Bilirubin, Total 0.3 mg/dL (0.2-1.0); CO2 27.2 mmol/L (21.0-32.0); CREATININE 0.9 mg/dL (0.70-1.30); Calcium 8.7 mg/dL (8.5-10.1); Chloride 104 mmol/L (98-107); Estimated GFR 97.78 (mL/min/1.73m2); Glucose 155 mg/dL (74-106); Potassium 3.4 mmol/L (3.5-5.1); Sodium 142 mmol/L (136-145); Total Protein 7.4 g/dL (6.4-8.2)
--- NOTE | 2022-11-26 17:41 | DI.VRAD_ITS ---
PROCEDURE INFORMATION: Exam: XR Right Forearm Exam date and time: 11/26/2022 5:17 PM Age: 62 years old Clinical indication: Swelling; Arm, lower; Right TECHNIQUE: Imaging protocol: Radiologic exam of the right forearm. Views: 2 views. COMPARISON: MR UPPER JOINT RT WO 12/08/2020 14:39 FINDINGS: Bones/joints: No evidence for acute bony injury. Soft tissues: Soft tissue swelling of the forearm, wrist, and hand. IMPRESSION: 1. No evidence for acute bony injury. If clinical symptoms persist recommend followup film in 7-10 days. 2. Soft tissue edema of the arm, wrist, and hand. Consider ultrasound for further evaluation of possible deep venous thrombosis. Dictated and Authenticated by: Sharlene Guerra MD. Ordering:KEYA Jones MD
--- NOTE | 2022-11-26 17:43 | DI.VRAD_ITS ---
PROCEDURE INFORMATION: Exam: XR Right Hand Exam date and time: 11/26/2022 5:15 PM Age: 62 years old Clinical indication: Swelling; Hand; Right; Patient HX: Possible insect bite TECHNIQUE: Imaging protocol: Radiologic exam of the right hand. Views: 3 or more views. COMPARISON: MR UPPER JOINT RT WO 12/08/2020 14:39 FINDINGS: Bones/joints: No evidence for acute bony injury. Mild degenerative changes of the DIP and PIP joints. Soft tissues: Soft tissue swelling of the hand and visualized wrist. IMPRESSION: 1. No evidence for acute bony injury. If clinical symptoms persist recommend followup film in 7-10 days. 2. Soft tissue swelling of the hand and wrist. If clinically indicated consider ultrasound of the arm to rule out possible deep venous thrombosis. Dictated and Authenticated by: Sharlene Guerra MD. Ordering:KEYA Jones MD
[2022-11-26] MEDS: cefTRIAXone 1 GM/50 ML BAG IVPB (18:28)
[2022-11-26] MEDS: Normal Saline 500 ML IV (18:29)
[2022-11-26] MEDS: Cephalexin 500 MG CAP, 2 CAPS/BTL PO (19:00)
[2022-11-26 19:15] VITALS: BP 152/61; PULSE 56; RESP 16; TEMP 37.6; O2SAT 97
== END 2022-11-26 19:13 | disposition home or self-care (01) ==
PROVIDERS: Emergency Provider Registered Nurse Emergency; PCP Family Medicine
DX: L03.113 Cellulitis of right upper limb (principal)
CPT/HCPCS: 80053; 87040; 96365; 96375; 99284; 73090; 73130; 83605; 83735; 85025; J0696; J1200; J2930

== ENCOUNTER 2023-01-15 12:09 | Outpatient (CLI) | payer BC, OTHER, SELFPAY ==
--- NOTE | 2023-01-15 09:07 | DI.RAD_ITS ---
Exam(s) XR KNEE LT 3V AP,LAT,CARLOS EXAM: XR KNEE LT 3V AP,LAT,CARLOS CLINICAL HISTORY: LEFT KNEE PAIN. TECHNIQUE: 2D digital imaging was performed. Three views. COMPARISON: MR MR LOWER JOINT RT WO from 07/08/2021 FINDINGS: BONES: No acute fracture is present. No bony destructive lesion is seen. Small enthesophyte at quadr iceps insertion on the patella. Mild spurring at the tibial spines. Minimal periarticular spurring. JOINTS: The knee is normally aligned. A small joint effusion is seen. SOFT TISSUE: Normal. IMPRESSION: Mild degenerative changes and small joint effusion. DATA REPOSITORY: RADIATION DOSE DELIVERED:
== END 2023-01-15 12:10 | disposition home or self-care (01) ==
LOC: DIORS 12:09
PROVIDERS: PCP Family Medicine; Referring Provider Family Medicine; Visit Provider Physician Assistant
DX: M17.12 Unilateral primary osteoarthritis, left knee (principal); M25.462 Effusion, left knee
CPT/HCPCS: 73562

== ENCOUNTER → 2023-01-25 14:58 | Outpatient (CLI) | payer BC, OTHER, SELFPAY ==
--- NOTE | 2023-01-25 14:45 | DI.RAD_ITS ---
Exam(s) XR FOOT RT COMPLETE EXAM: XR FOOT RT COMPLETE CLINICAL HISTORY: Norman delarosa M21.621 BUN[place]ETTE RT FOOT. TECHNIQUE: 2D digital imaging was performed. COMPARISON: CR FOOT-3 VIEWS (ROUTINE) from 09/28/2021 FINDINGS: 3 views No evidence of acute fracture or diastasis of the Lisfranc joint. Moderate-advanced degenerative sydnie nges again noted at great toe metatarsophalangeal joint. There is also some again noted osseous brid ging between the proximal thirds the 2nd-3rd-4th metatarsals. Also calcification within the main Lis franc joint space between the 1st and 2nd metatarsal bases and medial cuneiform. These findings most probably represent ligamentous calcification. There are some degenerative changes at the 2nd tarsom etatarsal joint between the middle cuneiform and base of the 2nd metatarsal. No obvious degenerative changes at the other tarsometatarsal joints. There is a semi lunar calcification on the lateral asp ect of the foot seen on the oblique view which is either a bony excrescence off the distal lateral ca lcaneus or an accessory ossicle. Small in these 0 fight noted at insertion site of the Achilles on the posterior calcaneus. There is no inferior calcaneal spur. Some degenerative changes noted at the dorsal aspect talonavicular joint . IMPRESSION: Multilevel findings as above. DATA REPOSITORY: RADIATION DOSE DELIVERED:
--- NOTE | 2023-01-25 14:45 | DI.RAD_ITS ---
Exam(s) XR FOOT LT COMPLETE EXAM: XR FOOT LT COMPLETE CLINICAL HISTORY: pain in left footM25.572 PAIN. TECHNIQUE: 2D digital imaging was performed. COMPARISON: CR XR FOOT RT COMPLETE from 01/25/2023 FINDINGS: 3 views No evidence of acute fracture or diastasis of the Lisfranc joint. Mild degenerative changes at the m etatarsophalangeal joint of the great toe noted. Some degenerative changes noted at the metatarsopha langeal joint of the 5th toe. Mild degenerative changes at the tarsometatarsal joints. Benign bone island in the mid calcaneus. Small enthesophyte on the posterior calcaneus Achilles insertion site. No evidence of inferior calcaneal spur nor calcification in the plantar fascia. IMPRESSION: Findings as above. DATA REPOSITORY: RADIATION DOSE DELIVERED:
== END ==
PROVIDERS: PCP Family Medicine; Visit Provider Podiatrist
DX: M19.071 Primary osteoarthritis, right ankle and foot (principal); M21.621 Bunionette of right foot
CPT/HCPCS: 73630

== ENCOUNTER 2023-05-22 12:54 | Day surgery (SDC) | payer BC, OTHER, SELFPAY ==
--- NOTE | 2023-05-22 08:40 | HPE_ITS ---
Documented by User: Natalie Orellana 05/22/23 14:23 Assessment and Plan Assessment and plan (1) Left carpal tunnel syndrome: Status: Acute (2) History of carpal tunnel surgery of left wrist: Status: Acute Assessment and plan: Plan: Educated patient on surgery covering surgical technique, recovery process, benefits and risks including but not limited to risk of infection, blood clot, damage to soft tissue/blood vessels/nerves in detail. After discussion patient gives verbal understanding of risks and elects to proceed with scheduling surgery. Patient had opportunity to have questions answered to their satisfaction. They will contact office if issues arise. Patient will continue to be scheduled for left OCTR with Dr. Acosta later today History of Present Illness Narrative: Mr. Underwood is a 63-year-old male who presents to hospital for left OCTR with Dr. Acosta. He is status post left ECTR completed in 01/2018 but has continued to have symptoms. For more history please refer to his last office note from 03/26/23. He denies any changes in his symptoms since his last visit. Review of Systems Cardiovascular Cardiovascular: Denies chest pain and Denies dyspnea Respiratory Respiratory: Denies dyspnea PFSH All Active Problems Low back pain (Acute) Onychomycosis (Acute) Corns and callosities (Acute) Pain in joint, foot, left (Acute) Internal derangement of left knee (Acute) DEPO MEDROL 01/15/23 Tailor's bunion of right foot (Acute) Calcific tendinitis of left shoulder (Acute) Left shoulder pain (Acute) Positive colorectal cancer screening using DNA-based stool test (Acute) Clinical trial, 07/27, colonoscopy scheduled SARS-CoV-2 positive (Acute ~02/2022) Lipoma (Acute) Internal derangement of right knee (Acute) Left carpal tunnel syndrome (Acute) History of carpal tunnel surgery of right wrist (Acute) DOS: 11/01/17 Dr. Acosta History of carpal tunnel surgery of left wrist (Acute) DOS: 01/03/18 Dr. Acosta Hematospermia (Acute 08/29/17) Thoracic spine pain (Acute 08/29/17) Sleep apnea (Acute 08/29/17) Pain in joint involving ankle and foot (Acute 08/29/17) Hyperlipidemia (Acute 08/29/17) Essential hypertension (Acute 08/29/17) Medical History Bilateral carpal tunnel syndrome B/L BiPAP (biphasic positive airway pressure) dependence Surgical History Status post arthroscopy of right shoulder Right rotator cuff debridement, biceps tenodesis, subacromial decompression and acromioplasty DOS: 02/22/2021 foot surgery (09/07/94) Tonsillectomy and adenoidectomy Repair of inguinal hernia Family History Father Hx of CABG Arteriosclerotic heart disease (ASHD) Mother Alcohol abuse Sister Brain malignancy Social History Smoking/Tobacco Use Status: Never Smoking risk assessment performed?: Yes Alcohol Intake: former Drug use: Never Substance use type: does not use Adopted: No Caregiver/Support person: No Foster care: No Household members: spouse Housing: house Number of Children: 0 number of grandchildren: 0 Communication Needs: None Education Level: high school Do you need help understanding health information?: Never current occupation: cdl flatbed truck driver Pets and animals: No Sexually active: No Do you think of yourself as: straight/heterosexual Current gender identity: male What is your relationship status?: How often do you talk on the phone with friends or family?: three or more times per week How often do you get together with friends or relatives?: once per week Do you belong to any clubs or organized social groups?: yes Panel score (0-1 are the most socially isolated patients): 3 What type of physical activity do you participate in: decline to answer Annia/Worship: None Special annia needs: No Seatbelt use: always Helmet use: Yes Drive intox or ride w/intox commercial trailer truck driver: No Do you feel safe at home: Yes Do you feel safe in your relationship?: Yes Meds Allergies and Home Medications Allergies Allergy/AdvReac Type Severity Reaction Status Date / Time poison lashawn extract Allergy Severe Verified 05/22/23 13:16 Home Medications Medication Instructions Recorded Confirmed Type multivitamin (Daily Multi-Vitamin 1 ea PO DAILY 09/07/17 05/22/23 History tablet) omega-3 360 si-lyr-bbb-fish oil 1 ea PO DAILY 09/07/17 05/22/23 History 1,200 mg capsule,delayed release (Fish Oil) atorvastatin 40 mg tablet 40 mg PO DAILY 03/25/18 05/22/23 History aspirin 81 mg tablet,delayed 81 mg PO DAILY 04/10/18 05/22/23 History release (Adult Aspirin Regimen) losartan 100 mg tablet 100 mg PO DAILY 09/20/20 05/22/23 History amlodipine 5 mg tablet 5 mg PO BID 12/20/21 05/22/23 History finasteride 5 mg tablet 5 mg PO DAILY 12/20/21 05/22/23 History probiotic PO DAILY 12/20/21 03/26/23 History torsemide 20 mg tablet 20 mg PO DAILY 12/20/21 05/21/23 History naproxen 500 mg tablet 500 mg PO BID #60 tabs 03/09/23 05/22/23 Rx Exam Const General: cooperative, healthy appearing and comfortable Resp Auscultation: clear to auscultation bilaterally, no rales, no rhonchi and no wheezes Cardio Heart Sounds: S1 normal and S2 normal Documented by User: Varun Acosta MD 05/29/23 06:28 Assessment and Plan Assessment and plan (1) Left carpal tunnel syndrome: Status: Acute (2) History of carpal tunnel surgery of left wrist: Status: Acute Assessment and plan: Plan: Educated patient on surgery covering surgical technique, recovery process, benefits and risks including but not limited to risk of infection, blood clot, damage to soft tissue/blood vessels/nerves in detail. After discussion patient gives verbal understanding of risks and elects to proceed with scheduling surgery. Patient had opportunity to have questions answered to their satisfaction. They will contact office if issues arise. Patient will continue to be scheduled for left OCTR with Dr. Acosta later today I interviewed and examined the patient with Natalie Orellana PA-C. I agree with the documentation as above. The assessment and plan were formulated with my direct involvement. Stacey is a 63-year-old who has continued symptoms of carpal tunnel despite endoscopic release. The symptoms only worsen. Therefore, I offered open carpal tunnel revision release today. I once again reviewed the risk to include bleeding, infection, pain, stiffness, continued symptoms, need for repeat procedures. Despite these risk, he elects to proceed. Varun Acosta MD FAAOS FAAHKS PFSH All Active Problems Low back pain (Acute) Onychomycosis (Acute) Corns and callosities (Acute) Pain in joint, foot, left (Acute) Internal derangement of left knee (Acute) DEPO MEDROL 01/15/23 Tailor's bunion of right foot (Acute) Calcific tendinitis of left shoulder (Acute) Left shoulder pain (Acute) Positive colorectal cancer screening using DNA-based stool test (Acute) Clinical trial, 07/27, colonoscopy scheduled SARS-CoV-2 positive (Acute ~02/2022) Lipoma (Acute) Internal derangement of right knee (Acute) Left carpal tunnel syndrome (Acute) History of carpal tunnel surgery of right wrist (Acute) DOS: 11/01/17 Dr. Acosta History of carpal tunnel surgery of left wrist (Acute) DOS: 01/03/18 Dr. Acosta Hematospermia (Acute 08/29/17) Thoracic spine pain (Acute 08/29/17) Sleep apnea (Acute 08/29/17) Pain in joint involving ankle and foot (Acute 08/29/17) Hyperlipidemia (Acute 08/29/17) Essential hypertension (Acute 08/29/17) Medical History Bilateral carpal tunnel syndrome B/L BiPAP (biphasic positive airway pressure) dependence Surgical History Status post arthroscopy of right shoulder Right rotator cuff debridement, biceps tenodesis, subacromial decompression and acromioplasty DOS: 02/22/2021 foot surgery (09/07/94) Tonsillectomy and adenoidectomy Repair of inguinal hernia Family History Father Hx of CABG Arteriosclerotic heart disease (ASHD) Mother Alcohol abuse Sister Brain malignancy Social History Smoking/Tobacco Use Status: Never Smoking risk assessment performed?: Yes Alcohol Intake: former Drug use: Never Substance use type: does not use Adopted: No Caregiver/Support person: No Foster care: No Household members: spouse Housing: house Number of Children: 0 number of grandchildren: 0 Communication Needs: None Education Level: high school Do you need help understanding health information?: Never current occupation: cdl flatbed truck driver Pets and animals: No Sexually active: No Do you think of yourself as: straight/heterosexual Current gender identity: male What is your relationship status?: How often do you talk on the phone with friends or family?: three or more times per week How often do you get together with friends or relatives?: once per week Do you belong to any clubs or organized social groups?: yes Panel score (0-1 are the most socially isolated patients): 3 What type of physical activity do you participate in: decline to answer Annia/Worship: None Special annia needs: No Seatbelt use: always Helmet use: Yes Drive intox or ride w/intox commercial trailer truck driver: No Do you feel safe at home: Yes Do you feel safe in your relationship?: Yes Meds Allergies and Home Medications Allergies Allergy/AdvReac Type Severity Reaction Status Date / Time poison lashawn extract Allergy Severe Verified 05/22/23 13:16 Home Medications Medication Instructions Recorded Confirmed Type multivitamin (Daily Multi-Vitamin 1 ea PO DAILY 09/07/17 05/22/23 History tablet) omega-3 360 an-nqj-egu-fish oil 1 ea PO DAILY 09/07/17 05/22/23 History 1,200 mg capsule,delayed release (Fish Oil) atorvastatin 40 mg tablet 40 mg PO DAILY 03/25/18 05/22/23 History aspirin 81 mg tablet,delayed 81 mg PO DAILY 04/10/18 05/22/23 History release (Adult Aspirin Regimen) losartan 100 mg tablet 100 mg PO DAILY 09/20/20 05/22/23 History amlodipine 5 mg tablet 5 mg PO BID 12/20/21 05/22/23 History finasteride 5 mg tablet 5 mg PO DAILY 12/20/21 05/22/23 History probiotic PO DAILY 12/20/21 03/26/23 History torsemide 20 mg tablet 20 mg PO DAILY 12/20/21 05/21/23 History naproxen 500 mg tablet 500 mg PO BID #60 tabs 03/09/23 05/22/23 Rx
--- NOTE | 2023-05-22 10:06 | PDOC.DSDIS_ITS ---
Date of service: 05/22/23 Time of Service: 14:25 Discharge Plan Disposition Patient Disposition: Home Condition: Good Discharge Details Reason For Visit: Left carpal tunnel syndrome Attending Provider: Varun Acosta Primary Care Provider: Oscar Evans Home Meds and New Rx's Prescriptions: Continued aspirin [Adult Aspirin Regimen] 81 mg tablet,delayed release (DR/EC) 81 mg PO DAILY losartan 100 mg tablet 100 mg PO DAILY finasteride 5 mg tablet 5 mg PO DAILY torsemide 20 mg tablet 20 mg PO DAILY amlodipine 5 mg tablet 5 mg PO BID probiotic PO DAILY naproxen 500 mg tablet 500 mg PO BID Qty: 60 0RF multivitamin [Daily Multi-Vitamin] 1 EACH tablet 1 ea PO DAILY omega 4-hkl-iik-fish oil [Fish Oil] 1 EACH capsule,delayed release(DR/EC) 1 ea PO DAILY atorvastatin 40 mg tablet 40 mg PO DAILY Patient Comments: via [facility] Discharge Instructions Additional Instructions: Open Carpal Tunnel Release Discharge Instructions Activity: You may use your fingers for light activity. You should limit any excessive motion or forceful gripping until the sutures have been removed. Dressings: You should keep the initial surgical dressing and brace in place for at least 3 days. You may remove your dressings and get the wound wet after 3 days. You should keep the dressings and the wound clean at all times and may apply a clean dressing as desired. You should continue to wear the brace following surgery but may remove for hygiene purposes. Medications: - You should take Tylenol and Ibuprofen around the clock as prescribed or per health policy manager's recommendations. Follow-up: 7-10 days for wound check and suture removal. Referrals: Varun Acosta MD [ [facility] ST[facility] PHYSICIAN] - Activity:: Elevate Remove Dressings/Wound Care:: 72 hours Shower/Bathe:: 72 hours Diet:: As Tolerated Discharge Orders Discharge Orders: Discharge Order (Routine); Ordered 05/22/23 Ordered By: Natalie Orellana DS: Diagnosis Discharge Diagnosis (1) Left carpal tunnel syndrome: Status: Acute (2) History of carpal tunnel surgery of left wrist: Status: Acute
[2023-05-22 13:19] VITALS: BP 155/78; PULSE 56; RESP 18; TEMP 36.8; O2SAT 99
[2023-05-22] MEDS: Lactated Ringers 1,000 ML 80 ML IV (13:41)
--- NOTE | 2023-05-22 14:15 | W.ANESPRE ---
General Info Date of Service Date Performed: 05/22/23 Height: 5 ft 9 in Weight: 115.212 kg Body Mass Index (BMI): 37.5 Surgical Procedure: Operation Date: 05/22/23 16:25 Proposed Procedure Side Surgeon p Wrist Open Carpal Tunnel Release Left Varun Acosta MD Meds Allergies and Home Medications Allergies Allergy/AdvReac Type Severity Reaction Status Date / Time poison lashawn extract Allergy Severe Verified 05/22/23 13:16 Home Medication Medication Instructions Recorded multivitamin (Daily Multi-Vitamin 1 ea PO DAILY 09/07/17 tablet) omega-3 360 bp-lfk-pmw-fish oil 1 ea PO DAILY 09/07/17 1,200 mg capsule,delayed release (Fish Oil) atorvastatin 40 mg tablet 40 mg PO DAILY 03/25/18 aspirin 81 mg tablet,delayed 81 mg PO DAILY 04/10/18 release (Adult Aspirin Regimen) losartan 100 mg tablet 100 mg PO DAILY 09/20/20 amlodipine 5 mg tablet 5 mg PO BID 12/20/21 finasteride 5 mg tablet 5 mg PO DAILY 12/20/21 probiotic PO DAILY 12/20/21 torsemide 20 mg tablet 20 mg PO DAILY 12/20/21 naproxen 500 mg tablet 500 mg PO BID #60 tabs 03/09/23 Current Visit Medications: Current Medications Generic Name Dose Route Start Last Admin Trade Name Freq PRN Reason Stop Dose Admin Acetaminophen 650 mg 05/22/23 08:43 Acetaminophen 325 Mg Tab PO 06/21/23 08:42 Q4H PRN PRN Hydrocodone Bitart/Acetaminophen 0 tab 05/22/23 08:43 Hydrocodone 5/Acetaminophen 325 Tab PO 06/21/23 08:42 Q3H PRN PRN Pain Ringer's Solution 1,000 mls @ 80 mls/hr 05/22/23 06:00 05/22/23 13:41 IV 05/22/23 23:59 80 mls/hr INFUSION DARNELL Administration Cefazolin Sodium/Dextrose 2 gm in 50 mls @ 100 mls/hr 05/22/23 06:00 Ancef Duplex IVPB 05/22/23 23:59 PREOP DARNELL IV Miscellaneous Supplies 1 each 05/22/23 06:00 Iv Access IV 05/22/23 23:59 DIRECTED DARNELL Sodium Chloride 0 ml 05/22/23 06:00 Normal Saline Flush 10 Ml Syr IV 05/22/23 23:59 PRN PRN Sodium Chloride 0 ml 05/22/23 06:00 Normal Saline 10 Ml Vial IJ 05/22/23 23:59 DIRECTED PRN Sterile Water 0 ml 05/22/23 06:00 Water,Injection,Sterile 10 Ml Vial IJ 05/22/23 23:59 DIRECTED PRN PFSH Active Problems Active Problems: Problem Status Onset Code Low back pain M54.50 Onychomycosis B35.1 Corns and callosities L84 Pain in joint, foot, left M25.572 Internal derangement of left knee M23.92 Tailor's bunion of right foot M21.621 Calcific tendinitis of left shoulder M75.32 Left shoulder pain M25.512 Positive colorectal cancer screening using DNA-based stool test R19.5 SARS-CoV-2 positive ~02/2022 U07.1 Lipoma D17.9 Internal derangement of right knee M23.91 Left carpal tunnel syndrome G56.02 History of carpal tunnel surgery of right wrist Z98.890 History of carpal tunnel surgery of left wrist Z98.890 Hematospermia 08/29/17 R36.1 Thoracic spine pain 08/29/17 M54.6 Sleep apnea 08/29/17 G47.30 Pain in joint involving ankle and foot 08/29/17 M25.579 Hyperlipidemia 08/29/17 E78.5 Essential hypertension 08/29/17 I10 Medical History Medical History Bilateral carpal tunnel syndrome B/L BiPAP (biphasic positive airway pressure) dependence Surgical History Surgical History Status post arthroscopy of right shoulder Right rotator cuff debridement, biceps tenodesis, subacromial decompression and acromioplasty DOS: 02/22/2021 foot surgery (09/07/94) Tonsillectomy and adenoidectomy Repair of inguinal hernia Tobacco Smoking/Tobacco Use Status: Never Passive smoking exposure: No Alcohol Alcohol Intake: former Substance Use Substance use: Never Substance use type: does not use Vital Signs and Lab Results Vital Signs Most Recent Vital Signs in EMR: Most Recent Vital Signs Temp Pulse Resp BP Pulse Ox 36.8 C 56 L 18 155/78 H 99 05/22/23 13:19 05/22/23 13:19 05/22/23 13:19 05/22/23 13:19 05/22/23 13:19 Lab Results Blood Type / Crossmatch: No Data to Display Complete Blood Count: No Data to Display Complete Metabolic Panel: No Data to Display Liver Function Panel: No Data to Display Coagulation Panel: No Data to Display Cardiac Panel: No Data to Display Arterial Blood Gas: No Data to Display Venous Blood Gas: No Data to Display Pancreas Panel: No Data to Display Thyroid Panel: No Data to Display Infectious Disease: No Data to Display Blood Cultures: No Data to Display Toxicology Panel: No Data to Display Anesthesia Assessment and Plan Anesthesia History Personal History: No History of Anesthesia Complications Family History: No Family History of Anesthesia Complications Exercise Tolerance Exercise Tolerance: Metabolic Equivalents>4 Cardiac & Pulmonary Exam Cardiac Exam: Normal S1/S2 Heart Sounds Pulmonary Exam: Clear Bilateral Breath Sounds Implantable Cardiac Device Does patient have a Pacemaker or an ICD?: No Airway Exam Known Difficult Airway: No Mallampati Class: 2 Mouth Opening: Normal (> 3cm) Thyromental Distance: Greater than 3 cm Neck Range of Motion: Full ROM Neck Circumference: Thick Teeth Condition: Loose or Chipped ASA Classification ASA Score: ASA 2 Emergency Case?: No NPO Status NPO Status: NPO Clears >2 hours, Solids >8 hours Anesthesia Plan Resuscitation Status: Full Code Anesthesia Technique: General Anesthesia Airway Planned: Natural Airway Monitors Used: Standard Monitors Preoperative Comments:: 63 yo male for open carpal tunnel release. Sig PMHx: sever ARMANDO (bipap), HTN, never smoker, Previous Anes: - Shoulder, glide 3 grade 1, difficult mask- two hands/OPA used. - ECTR, prop, natural airway, no issues. - ECTR, midaz, ketamine, prop, natural airway, no issues. Discussed under block vs prop GA/sedation. would like GA given pain in positioning.
[2023-05-22 14:19] VITALS: BMI 37.5
[2023-05-22] MEDS: ceFAZolin 2 GM/50 ML BAG IVPB (16:10)
[2023-05-22] MEDS: Sodium Bicarbonate 50 MEQ/50 ML VIAL (16:22)
[2023-05-22] MEDS: Lidocaine 1% Multi-Dose W/EPI 1/100,000 50 ML VIAL (16:22)
[2023-05-22 16:46] VITALS: BP 130/68; PULSE 64; RESP 18; TEMP 36.4; O2SAT 98
[2023-05-22 17:27] VITALS: BP 159/77; PULSE 58; RESP 18; O2SAT 97
--- NOTE | 2023-05-22 17:30 | ROE_ITS ---
Date of service: 05/22/23 Time of Service: 16:00 Operative Note Operative Note DATE OF PROCEDURE: 05/22/23 PRE-OP DIAGNOSIS: Recurrent Carpal Tunnel Syndrome POST-OP DIAGNOSIS: same PROCEDURE: Open Carpal Tunnel Release - LEFT SURGEON: Varun Acosta ANESTHESIA TYPE: MAC Refer to Anesthesia Record ESTIMATED BLOOD LOSS: 5 PATHOLOGY: none sent TOURNIQUET TIME: 0 COMPLICATIONS: None Patient was transported to: same day Patient's condition: stable Indications: Carmine is a 63 year old male who I have seen for carpal tunnel syndrome which never fully recovered from the first endoscopic procedure but has continued to worsen. I reviewed the risk of the procedure to include bleeding, infection, pain, stiffness, continued numbness, damage to nerves and vessels, damage to muscles and tendons, need for repeat procedures. Despite these risk, patient desired to proceed. Findings: There was a tightened transverse carpal ligament. It was released fully released. The median nerve was inspected and showed no signs of adhesions or injury. Procedure Description: Carmine was greeted in the preoperative holding area. The correct site was identified and marked. The consent was reviewed the patient and signed. The history physical was updated. Patient was taken back to the operating room and placed in the supine position with the left hand placed on a hand table. A nonsterile tourniquet was placed high up onto the arm. The hand and forearm was then prepped with ChloraPrep and draped in standard fashion. Prophylactic antibiotics in the form of cefazolin were given. A timeout was performed for safe surgery. The surgical site was then injected and anesthetized with 1% lidocaine with epinephrine buffered with sodium bicarbonate. The radial border of the fourth ray was marked on the skin as well as any other pertinent surface anatomy. Tourniquet was not used. Using 15 blade the skin was incised sharply. Blunt dissection was carried down to the level of the palmar fascia. This was sharply divided making sure to protect any crossing neurovascular branches. Once this was divided the fibers of the transverse carpal ligament were identified. Using a [place], I was able to place this underneath a portion of the transverse carpal ligament. A knife was then used to cut directly onto the [place]. This release the transverse carpal ligament. Using the [place] to protect underlying tendons and the median nerve, I released the remainder of the transverse carpal ligament. It was notably thickened and tight. A scissor was used to complete the far aspects after making sure there is no interposed tissue. There is notable separation of the leaflets. Elevating, lifting up, the radial flap of the transverse carpal ligament exposed the median nerve. Any adhesions between it and the transverse carpal ligament were released. He was fully inspected and showed no signs of injury or damage. There was some notable inflamed tissue adjacent to the median nerve. I resected any bands of tissue attached to the median nerve. I did not perform a complete neurolysis the nerve appeared to be free. Then, the wound was then fully irrigated. The skin and deeper tissues were closed with a interrupted 4-0 nylon suture. The tourniquet was deflated and there was return of blood flow to all digits. No excessive bleeding from the wound. 4 x 4 gauze was applied followed by Kerlix wrap and an Jesus wrap. The hand was placed into a removable brace. At the end the case all counts are correct. The patient tolerated the procedure well and was transferred back to the day surgery area in a stable condition.
--- NOTE | 2023-05-22 18:24 | W.ANESPOSTOP ---
Postoperative Evaluation Date, Time and Location Date Performed: 05/22/23 Time Performed: 16:45 Patient Location: Day Surgery Unit Vital Signs Most Recent Imported Vital Signs: Most Recent Vital Signs Temp Pulse Resp BP Pulse Ox 36.4 C L 58 L 18 159/77 H 97 05/22/23 16:46 05/22/23 17:27 05/22/23 17:27 05/22/23 17:27 05/22/23 17:27 Pain Score Most Recent Pain Score: Most Recent Pain Score Pain Level 0 05/22/23 17:27 Assessment Mental Status: Awake (Alert & Oriented to Patient Baseline) Airway and Respiratory Function: Patent airway with normal (patient baseline) respiratory exam Cardiovascular Function: Hemodynamically Stable Hydration Status: Adequately Hydrated Nausea & Vomiting: No Nausea or Vomiting Pain: Pt. Denies Any Pain Peripheral Nerve Block: Patient did not receive a nerve block
== END 2023-05-22 17:33 | disposition home or self-care (01) ==
LOC: SUR 12:54
PROVIDERS: PCP Family Medicine; Visit Provider Student in an Organized Health Care Education/Training Program
PROC: (CPT 64721; principal; 2023-05-22 16:45)
DX: G56.02 Carpal tunnel syndrome, left upper limb (principal); Z98.890 Other specified postprocedural states; I10 Essential (primary) hypertension; G47.30 Sleep apnea, unspecified
CPT/HCPCS: 64721; J0690; J2001; J2250; J2704

== ENCOUNTER 2023-09-16 12:41 | Emergency (ER) | payer BC, OTHER, SELFPAY ==
[2023-09-16 12:45] VITALS: BP 166/60; PULSE 70; RESP 16; O2SAT 98
--- NOTE | 2023-09-16 12:58 | ED.GENADUL_ITS ---
Discharge Plan Disposition Patient Disposition: Home Condition: Stable Discharge Details Clinical Impression: Leg wound, left Primary Care Provider: Oscar Evans ED Provider: Je Deleon Home Meds and New Rx's Prescriptions: Continued aspirin [Adult Aspirin Regimen] 81 mg tablet,delayed release (DR/EC) 81 mg PO DAILY losartan 100 mg tablet 100 mg PO DAILY finasteride 5 mg tablet 5 mg PO DAILY torsemide 20 mg tablet 20 mg PO DAILY amlodipine 5 mg tablet 5 mg PO BID naproxen 500 mg tablet 500 mg PO BID Qty: 60 0RF multivitamin [Daily Multi-Vitamin] 1 EACH tablet 1 ea PO DAILY Fish Oil 1 EACH capsule,delayed release(DR/EC) 1 ea PO DAILY atorvastatin 40 mg tablet 40 mg PO DAILY Patient Comments: via [facility] Discharge Instructions Additional Instructions: Your wound was not deep enough to require sutures If you have spreading redness from the wound or yellow-white discharge return to the emergency department for reevaluation HPI General Mode of arrival: ambulatory . Date/Time Provider Initiated Documentation: 09/16/23 12:50 . Limitations to Documentation: no limitations . Information obtained by: patient . History of Present Illness 63 year old M presents to the emergency department with the chief complaint of Cut left leg with a chainsaw, described as mild, Patient started experiencing this hour(s) (1) and it has been constant. No relieving factors improve symptom(s), No exacerbating factors reported . Patient notes no other symptoms.. Patient did receive the following treatments prior to arrival, none Related Data Home Medications Medication Instructions Recorded Confirmed multivitamin (Daily Multi-Vitamin 1 ea PO DAILY 09/07/17 09/16/23 tablet) omega-3 360 pf-oty-lsz-fish oil 1 ea PO DAILY 09/07/17 09/16/23 1,200 mg capsule,delayed release (Fish Oil) atorvastatin 40 mg tablet 40 mg PO DAILY 03/25/18 09/16/23 aspirin 81 mg tablet,delayed 81 mg PO DAILY 04/10/18 09/16/23 release (Adult Aspirin Regimen) losartan 100 mg tablet 100 mg PO DAILY 09/20/20 09/16/23 amlodipine 5 mg tablet 5 mg PO BID 12/20/21 09/16/23 finasteride 5 mg tablet 5 mg PO DAILY 12/20/21 09/16/23 torsemide 20 mg tablet 20 mg PO DAILY 12/20/21 09/16/23 naproxen 500 mg tablet 500 mg PO BID #60 tabs 03/09/23 09/16/23 Previous Rx's Medication Instructions Recorded naproxen 500 mg tablet 500 mg PO BID #60 tabs 03/09/23 Allergies Allergy/AdvReac Type Severity Reaction Status Date / Time poison lashawn extract Allergy Severe Other (See Verified 09/16/23 12:48 Comment) General Stated Complaint: Laceration DOE: 4 Review of Systems All systems reviewed & are unremarkable except as noted in HPI and below Constitutional Constitutional: Denies chills, Denies fever(s) and Denies weakness Cardiovascular Cardiovascular: Denies chest pain and Denies dyspnea Respiratory Respiratory: Denies cough and Denies dyspnea Gastrointestinal Gastrointestinal: Denies abdominal pain, Denies nausea and Denies vomiting Genitourinary Genitourinary: Denies dysuria Musculoskeletal Musculoskeletal: Denies joint swelling Integumentary/Breasts Skin/Breast: Denies rash Neurologic Neurologic: Denies weakness Psychiatric Psychiatric: Denies depression Exam Const General: no acute distress Orientation: alert [facility] Head: normal to inspection Ears: external ears normal General nose exam: external nose normal Mouth: moist mucous membranes Eyes General: appearance normal, both eyes and all related structures Neck Neck: normal visual inspection Resp Effort & Inspection: normal respiratory effort and able to speak in complete sentences Cardio Rate: regular rate Skin General skin exam: no rashes or lesions noted Neuro General: patient alert and patient oriented x3 Extrem General: full ROM and capillary refill normal Psych Mental Status: mental status grossly normal Course Vital Signs Vital signs: Vital Signs Pulse 70 09/16/23 12:45 Respiratory Rate 16 09/16/23 12:45 Blood Pressure 166/60 H 09/16/23 12:45 Pulse Oximetry 98 09/16/23 12:45 Pulse 70 09/16/23 12:45 Respiratory Rate 16 09/16/23 12:45 Blood Pressure 166/60 H 09/16/23 12:45 Pulse Oximetry 98 09/16/23 12:45 Oxygen Delivery Method Room Air 09/16/23 12:45 Oxygen Flow Rate 0 09/16/23 12:45 Medical Decision Making 63-year-old male comes in after he accidentally cut his left leg with his chainsaw within the last hour. Denies falling or other injuries. He has a very superficial 1 cm linear laceration just superior to the left knee. There is no visible foreign bodies, he has full range of motion of the knee with intact distal sensation and pulses. The wound is not deep enough to require sutures, nursing will irrigate the wound and place Steri-Strips. He has no findings on exam to suggest tendon injury. Will update his tetanus and return precautions given Differential Diagnosis Differential Diagnosis: Abrasion, laceration Quality:SDOH Health Related Social Needs: No Data to Display PFSH All Active Problems (Updated 09/16/23 @ 13:01 by Je Deleon MD) Leg wound, left (Acute) Low back pain (Acute) Onychomycosis (Acute) Corns and callosities (Acute) Pain in joint, foot, left (Acute) Internal derangement of left knee (Acute) DEPO MEDROL 01/15/23 Tailor's bunion of right foot (Acute) Calcific tendinitis of left shoulder (Acute) Left shoulder pain (Acute) Positive colorectal cancer screening using DNA-based stool test (Acute) Clinical trial, 07/27, colonoscopy scheduled SARS-CoV-2 positive (Acute ~02/2022) Lipoma (Acute) Internal derangement of right knee (Acute) Left carpal tunnel syndrome (Acute) History of carpal tunnel surgery of right wrist (Acute) DOS: 11/01/17 Dr. Acosta History of carpal tunnel surgery of left wrist (Acute) Dr. Acosta ECTR 01/03/18, OCTR 05/22/23 Hematospermia (Acute 08/29/17) Thoracic spine pain (Acute 08/29/17) Sleep apnea (Acute 08/29/17) Pain in joint involving ankle and foot (Acute 08/29/17) Hyperlipidemia (Acute 08/29/17) Essential hypertension (Acute 08/29/17) Medical History (Updated 09/16/23 @ 13:01 by Je Deleon MD) Bilateral carpal tunnel syndrome B/L BiPAP (biphasic positive airway pressure) dependence Surgical History (Updated 06/01/23 @ 09:54 by ANNA Lynn) Status post arthroscopy of right shoulder Right rotator cuff debridement, biceps tenodesis, subacromial decompression and acromioplasty DOS: 02/22/2021 foot surgery (09/07/94) Tonsillectomy and adenoidectomy Repair of inguinal hernia Family History Father Hx of CABG Arteriosclerotic heart disease (ASHD) Mother Alcohol abuse Sister Brain malignancy Social History Smoking/Tobacco Use Status: Never Smoking risk assessment performed?: Yes Alcohol Intake: former Drug use: Never Substance use type: does not use Adopted: No Caregiver/Support person: No Foster care: No Household members: spouse Housing: house Number of Children: 0 number of grandchildren: 0 Communication Needs: None Education Level: high school Do you need help understanding health information?: Never current occupation: petrol tanker driver Pets and animals: No Sexually active: No Do you think of yourself as: straight/heterosexual Current gender identity: male What is your relationship status?: How often do you talk on the phone with friends or family?: three or more times per week How often do you get together with friends or relatives?: once per week Do you belong to any clubs or organized social groups?: yes Panel score (0-1 are the most socially isolated patients): 3 What type of physical activity do you participate in: decline to answer Annia/Scientology: None Special annia needs: No Seatbelt use: always Helmet use: Yes Drive intox or ride w/intox non emergency services ambulance driver: No Do you feel safe at home: Yes Do you feel safe in your relationship?: Yes
[2023-09-16] MEDS: Tetanus & Diphtheria Tox,ADULT 0.5 ML VIAL IM (13:12)
--- NOTE | 2023-09-16 13:15 | NUR.NOTE ---
steri-strips applied to laceration, covered with telfa secured with tape
== END 2023-09-16 13:13 | disposition home or self-care (01) ==
LOC: ER 13:24
PROVIDERS: Emergency Provider Emergency Medicine; PCP Family Medicine
DX: S81.012A Laceration without foreign body, left knee, initial encounter (principal); I10 Essential (primary) hypertension; E78.5 Hyperlipidemia, unspecified; Z79.82 Long term (current) use of aspirin; W29.3XXA Contact with powered garden and outdoor hand tools and machinery, initial encounter
CPT/HCPCS: 90471; 90714; 99283

== ENCOUNTER 2023-11-14 10:22 | Outpatient (CLI) | payer BC, OTHER, SELFPAY ==
--- NOTE | 2023-11-14 10:15 | RT.EKG_ITS ---
APPROVED REPORT Exam: Resting ECG Reason for Exam: Chest fluttering Patient Location: O HR:58 bpm ECG Measurements Heart Rate 58 AXIS WY 109 P -13 QRSd 107 QRS 46 QT 403 T 25 QTc 396 Conclusion Sinus rhythm...normal P axis, V-rate 50- 99 Short WY interval...WY <110mS Otherwise normal ECG
== END 2023-11-14 10:23 | disposition home or self-care (01) ==
PROVIDERS: PCP Family Medicine; Visit Provider Emergency Medicine
DX: I10 Essential (primary) hypertension (principal); I49.8 Other specified cardiac arrhythmias
CPT/HCPCS: 93010

== ENCOUNTER 2023-11-14 11:43 | Outpatient (CLI) | payer BC, OTHER, SELFPAY ==
[2023-11-14 11:09] LABS: HCT 42.6 % (40.0-50.0); HGB 14.2 g/dL (13.5-17.5); MCHC 33.3 % (32.0-36.0); MCV 84 fL (80-95); MPV 8.7 fL (8.0-11.0); Platelet Count 393 10^3/uL (130-400); RBC 5.07 10^6/uL (4.36-5.78); RDW 13.7 % (11.8-14.1); RDW-SD 42.1 fL; WBC 10.76 10^3/uL (4.4-10.8)
[2023-11-14 11:29] LABS: Troponin I < 50 ng/L (< or =60)
[2023-11-14 11:34] LABS: ALT 33 U/L (16-63); AST 22 U/L (15-37); Alkaline Phosphatase 141 U/L (46-116); Anion Gap 7.4 mmol/L (3-11); BUN 10 mg/dL (7-18); Bilirubin, Total 0.4 mg/dL (0.2-1.0); CO2 28.6 mmol/L (21.0-32.0); CREATININE 0.9 mg/dL (0.70-1.30); Calcium 8.8 mg/dL (8.5-10.1); Chloride 104 mmol/L (98-107); Estimated GFR 97.17 (mL/min/1.73m2); Glucose 107 mg/dL (74-106); Potassium 3.8 mmol/L (3.5-5.1); Sodium 140 mmol/L (136-145); TSH 1.85 uIU/Ml (0.36-3.74); Total Protein 7.9 g/dL (6.4-8.2)
[2023-11-14 11:35] LABS: C-Reactive Protein < 0.50 mg/dL (<or=0.5)
== END 2023-11-14 11:44 | disposition home or self-care (01) ==
LOC: LBO 11:43
PROVIDERS: PCP Family Medicine; Visit Provider Emergency Medicine
DX: R06.09 Other forms of dyspnea (principal); E03.9 Hypothyroidism, unspecified
CPT/HCPCS: 36415; 80053; 85027; 84443; 84484; 86140

== ENCOUNTER → 2023-11-20 00:56 | Outpatient (CLI) | payer BC, OTHER, SELFPAY ==
--- NOTE | 2023-11-20 05:45 | ETT_ITS ---
APPROVED REPORT Exam: Exercise Treadmill Patient Location: Out-Patient Room/Bed: Stress Nurse: Gertrude Jarvis RN and Ni Jones RN Ordering Provider:YAZ CONWAY, Contact Number: [phone] BMI: 37.50 Baseline Rhythm: Sinus Rhythm Indications: Dyspnea on Exertion Medical History Medical History: Hyperlipidemia; Hypertension; Fatigue; Sleep Apnea (with BiPAP use). Cardiac Medications: Amlodipine; Aspirin; Atorvastatin; Losartan; Torsemide. Allergies: Poison Karissa Extract. Cardiac Risk Factors: Family Hx; Hyperlipidemia; Hypertension. Previous Cardiac Procedures: None. Pretest Chest Pain Characteristics: None. Exercise History: Indeterminate. Physical Disabilities: None. Lung Sounds: Clear bilaterally throughout, anterior and posterior. Heart Sounds: S1 and S2 auscultated. Stress Test Details Test: Exercise stress testing was performed using a Kunal protocol. Rest Stress HR Resting HR Supine: 58 bpm Max Heart Rate (APMHR): 159 bpm Resting HR Standin bpm Target HR (85% APMHR): 135 bpm Max HR Achieved: 125 bpm % of APMHR: 79 Recovery HR: 65 bpm HR response to stress: Normal HR response to stress BP Resting BP Supine: 164/68 mmHg Resting BP Standin/72 mmHg Max BP: 256/84 mmHg Recovery BP: 166/60 mmHg BP response to stress: Abnormal hypertensive response to stress. ECG Resting ECG: Sinus Rhythm Stress ECG: Sinus Tachycardia ST Change: Nondiagnostic low heart rate Arrhythmia: None. Recovery ECG: Sinus Rhythm Recovery ST Change: Nondiagnostic low heart rate Recovery Arrhythmia: Occasional PAC's. Clinical Reason for Termination: Hypertension parameters exceeded. Stress Symptoms: None. Exercise duration: 05 min43 sec Highest Stage Reached: 2 Exercise capacity: 7.05 METs Angina Score: None Reilly Treadmill Score: 5.5 Rate Pressure Product: 48395 Stress ECG Conclusion 1. Resting electrocardiogram showed poor R wave progression 2. Patient exercised on the Kunal protocol completed a workload of 7 METS. The test was stopped edouard use of marked systolic hypertension, blood pressure greater than 250 3. The electrocardiographic portion of the test was nondiagnostic as peak heart rate was 79% of maxim al predicted heart rate for age 4. The patient had no symptoms 5. There were no dysrhythmias Reilly Treadmill Score is 5.5 which is Low risk. Stress Test Summary STAGE Time (mins) Speed (mph) Grade (%) HR BP SpO2 SYMPTOMS METS Supine 58 164/68 95 Standing 62 164/72 1 3 1.7 10 107 230/84 4.5 2 6 2.5 12 125 256/84 96 7 1 min recovery 80 252/54 98 3 min recovery 74 210/40 6 min recovery 67 182/58 9 min recovery 65 166/60 98 ETT discontinued due to hypertensive parameters being met. Dr. Fuller notified of pt.'s BP, of the lack of symptoms, and of the ETT being discontinued. Dr. Fuller also notified that pt.'s BP returned to bas lara and continued lack of symptoms. Dr. Fuller stated that it was safe to allow the pt. to leave the hospital. Nursing staff discussed with pt. the signs and symptoms of an emergency, especially a hyper tensive emergency, and when to seek care at the Emergency Department. Pt. verbalized understanding.
== END ==
PROVIDERS: PCP Family Medicine; Visit Provider Emergency Medicine
DX: R06.09 Other forms of dyspnea (principal)
CPT/HCPCS: 93017

== ENCOUNTER 2023-11-30 01:38 | Outpatient (CLI) | payer BC, OTHER, SELFPAY ==
[2023-11-30 10:08] LABS: Abs Immature Grans 0.04 10^3/uL (0.0-0.06); Absolute Basophil Count 0.07 10^3/uL (0.0-0.2); Absolute Eosinophil Count 0.15 10^3/uL (0.0-0.7); Absolute Lymphocyte Count 1.56 10^3/uL (1.2-3.4); Absolute Monocyte Count 0.74 10^3/uL (0.1-0.8); Absolute Neutrophil Count 7.95 10^3/uL (1.2-6.7); Basophils % 0.7 %; Eosinophils % 1.4 %; HCT 42.1 % (40.0-50.0); HGB 14.1 g/dL (13.5-17.5); Immature Grans % 0.4 %; Lymphocytes % 14.8 %; MCH 28.3 pg (27.0-33.0); MCHC 33.5 % (32.0-36.0); MCV 84 fL (80-95); MPV 8.9 fL (8.0-11.0); Neutrophils % 75.7 %; Platelet Count 328 10^3/uL (130-400); RBC 4.99 10^6/uL (4.36-5.78); RDW 13.5 % (11.8-14.1); WBC 10.51 10^3/uL (4.4-10.8)
[2023-11-30 10:18] LABS: Calculated LDL 86 mg/dL (<100); Cholesterol 153 mg/dL (<200); HDL Cholesterol 50 mg/dL (40-60); Triglyceride 86 mg/dL (<150)
[2023-11-30 10:30] LABS: GGT 20 U/L (15-85)
[2023-12-03 13:14] LABS: Lyme Ab w Rflx to Lyme Confirm Negative (Negative)
[2023-12-04 11:50] LABS: Alkaline Phosphatase 134 U/L (40 - 129); Intestine 1.1 IU/L (0.0-11.0); Intestine % 0.8 % (0.0-20.6); Liver % 79.2 % (27.8-76.3)
== END 2023-11-30 01:39 | disposition home or self-care (01) ==
LOC: LBO 01:38
PROVIDERS: Emergency Medicine; Student in an Organized Health Care Education/Training Program; PCP Family Medicine; Referring Provider Nurse Practitioner Family; Visit Provider Nurse Practitioner Family
DX: R74.8 Abnormal levels of other serum enzymes (principal); E78.5 Hyperlipidemia, unspecified; R53.83 Other fatigue; K92.2 Gastrointestinal hemorrhage, unspecified
CPT/HCPCS: 36415; 80061; 84075; 84080; 82977; 85025; 86618

== ENCOUNTER 2023-12-18 08:53 | Outpatient (CLI) | payer BC, OTHER, SELFPAY ==
--- NOTE | 2023-12-18 08:45 | RT.EKG_ITS ---
APPROVED REPORT Exam: Resting ECG Reason for Exam: ALEXANDRA Patient Location: O HR:56 bpm ECG Measurements Heart Rate 56 AXIS GA 163 P 37 QRSd 109 QRS 58 QT 402 T 22 QTc 388 Conclusion Sinus rhythm...normal P axis, V-rate 50- 99 Normal Electrocardiogram
== END 2023-12-18 08:54 | disposition home or self-care (01) ==
LOC: DI.CARD 08:54
PROVIDERS: PCP Family Medicine; Visit Provider Internal Medicine Cardiovascular Disease
DX: R06.09 Other forms of dyspnea (principal); I10 Essential (primary) hypertension
CPT/HCPCS: 93010

== ENCOUNTER → 2024-01-07 01:51 | Outpatient (CLI) | payer BC, OTHER, SELFPAY ==
--- NOTE | 2024-01-07 07:00 | DI.NM_ITS ---
APPROVED REPORT Exam: Pharmacologic Patient Location: Out-Patient Room/Bed: Stress Nurse: Ni Jones RN and Gertrude Jarvis RN Ordering Provider:ОЛЕГ GALLAGHER, Contact Number: [phone] BMI: 37.65 Baseline Rhythm: Sinus Bradycardia. Indications: Dyspnea on Exertion; Non-diagnostic ETT; Hypertension. Medical History Medical History: Acid Reflux; Dyspnea on Exertion; Hyperlipidemia; Hypertension; Sleep Apnea; BiPAP D ependence. Cardiac Medications: Amlodipine; Aspirin; Atorvastatin; Finasteride; Losartan; Torsemide. Allergies: Poison Karissa. Cardiac Risk Factors: Family Hx; Hyperlipidemia; Hypertension; Obesity. Previous Cardiac Procedures: None. Pretest Chest Pain Characteristics: None. Exercise History: Indeterminate. Physical Disabilities: None. Lung Sounds: Clear bilaterally throughout, anterior and posterior. Heart Sounds: S1 and S2 auscultated. Stress Test Details Test: Pharmacologic stress was paired with low level exercise. Reason for pharmacologic stress test: Hx of hypertension with Kunal protocol during previous stress test. Nuclear Acquisition: Rest Tc-99m/Stress Tc-99m 1 day Rest Isotope: Tc-99m Sestamibi. Dose: 12.0 Date: 01/07/2024 Injection Time: 0915 Stress Isotope: Tc-99m Sestamibi. Dose: 36.0 Date: 01/07/2024 Injection Time: 1111 HR Resting HR Supine: 53 bpm Max Heart Rate (APMHR): 159.075627 bpm Resting HR Standin bpm Target HR (85% APMHR): 135.579803 bpm Max HR Achieved: 97 bpm % of APMHR: 61.01 Recovery HR: 69 bpm BP Resting BP Supine: 150/70 mmHg Resting BP Standin/80 mmHg Max BP: 170/70 mmHg Recovery BP: 170/64 mmHg ECG Resting ECG: Sinus Bradycardia. Ectopy: None. Stress ECG: Sinus Rhythm. ST Change: Nondiagnostic low heart rate. Arrhythmia: None. Recovery ECG: Sinus Rhythm. Recovery ST Change: Nondiagnostic low heart rate. Recovery Arrhythmia: Occasional PAC's. Clinical Angina Score: Non-Limiting Rate Pressure Product: [id number] Stress ECG Conclusion 1. Resting electrocardiogram showed poor R wave progression 2. Patient underwent testing using pharmacologic stress with regadenoson 3. Peak heart rate achieved was 61% of maximal predicted for age 4. Electrocardiographic portion of the test was nondiagnostic 5. See MPI report Stress Test Summary STAGE HR BP SpO2 Symptoms NOTES Supine 53 150/70 97 Standing 58 158/80 98 1 min post Lexiscan injection 94 170/70 Pt. complaining of moderate shortness of breath and 4/10 c hest pain. 3 min post Lexiscan injection 79 164/60 98 Pt. complaining of mild shortness of breath and 2/[address] pain and states that he feels ...like my heart is racing. 6 min post Lexiscan injection 69 170/64 96 Pt. states that all symptoms have resolved. Pt. denies a ny shortness of breath or chest pain. Pt. was conversing pleasantly with nursing staff upon leaving the Stress Lab. Pt. left ambulatory in no apparent distress. MPI Conclusion Myocardial perfusion is normal. There is no ischemia or evidence of prior infarction Ejection fraction is 60% with normal wall motion Radiologist Interpretation Radiologist agrees with Dam Tender Assistant's Interpretation. Radiologist Interpretation by: Haja Pritchard MD Interpretation Date/Time: 01/07/2024 18:38:49
[2024-01-07] MEDS: Regadenoson 0.4 MG/5 ML SYR IVP (11:10)
== END ==
PROVIDERS: PCP Family Medicine; Visit Provider Internal Medicine Cardiovascular Disease
DX: R06.09 Other forms of dyspnea (principal); I10 Essential (primary) hypertension
CPT/HCPCS: 78452; 93017; J2785

== ENCOUNTER 2024-03-21 16:44 | Outpatient (CLI) | payer BC, OTHER, SELFPAY ==
--- NOTE | 2024-03-21 06:37 | DI.RAD_ITS ---
Exam(s) XR HIP RT COMPLETE AP PELVIS EXAM: XR HIP RT COMPLETE AP PELVIS CLINICAL HISTORY: Chronic low back/rt hip pain,m25.551. TECHNIQUE: 2D digital imaging was performed of the right hip. Two images were obtained. AP pelvis a nd lateral right hip views were obtained. COMPARISON: CR LUMBAR SPINE COMPLETE from 08/24/2016 FINDINGS: BONES: No acute fracture is present. No bony destructive lesion is seen. JOINTS: No dislocation present. There are degenerative changes seen at the sacroiliac joints bilatera lly. There is also mild narrowing of the superior joint space of the hips bilaterally. SOFT TISSUE: Dystrophic calcifications are seen in the soft tissues inferior to the right hip and adj acent to the left greater trochanter. IMPRESSION: Mild arthrosis of the right hip. DATA REPOSITORY: RADIATION DOSE DELIVERED:
--- NOTE | 2024-03-21 08:18 | DI.RAD_ITS ---
Exam(s) XR LUMBAR SPINE COMPLETE EXAM: XR LUMBAR SPINE COMPLETE CLINICAL HISTORY: Chronic low back pain,rt hip pain, m54.50. TECHNIQUE: 2D digital imaging was performed of the lumbar spine. Five images were obtained. AP, la teral, right oblique, left oblique and L5-S1 spot views were obtained. COMPARISON: CR LUMBAR SPINE COMPLETE from 08/24/2016 FINDINGS: BONES: No fracture or destructive lesion. There are endplate osteophytes at multiple levels of the nolan mbar spine. No facet hypertrophy identified. DISKS: Intervertebral disc spaces are maintained. ALIGNMENT: Lumbar spinal alignment is within normal limits. No spondylolysis or spondylolisthesis. SOFT TISSUE: Vascular calcifications are present. IMPRESSION: Mild degenerative changes in the lumbar spine. DATA REPOSITORY: RADIATION DOSE DELIVERED:
[2024-03-21 16:47] LABS: TSH (W/Ref FT4) 1.92 uIU/mL (0.36-3.74)
== END 2024-03-21 17:04 ==
LOC: DI 16:46
PROVIDERS: PCP Family Medicine; Referring Provider Family Medicine; Visit Provider Family Medicine
DX: M51.362 Other intervertebral disc degeneration, lumbar region with discogenic back pain and lower extremity pain (principal); M16.11 Unilateral primary osteoarthritis, right hip
CPT/HCPCS: 36415; 72110; 73502; 84443